=== PATIENT | female | born 1960 | race Caucasian/White ===

== ENCOUNTER 2025-01-13 01:40 | Emergency (ER) | payer OTHER, SELFPAY ==
[2025-01-13 01:41] VITALS: PULSE 98; RESP 18; TEMP 36.9; O2SAT 98; BMI 38.5
--- NOTE | 2025-01-13 02:05 | EKG12_ITS ---
Test Reason : CP Blood Pressure : */* mmHG Vent. Rate : 88 BPM Atrial Rate : 88 BPM P-R Int : 156 ms QRS Dur : 66 ms QT Int : 358 ms P-R-T Axes : 56 8 34 degrees QTcB Int : 433 ms Normal sinus rhythm with sinus arrhythmia Normal ECG Confirmed by NEHEMIAH AGUIRRE MD ([id number]), photo editor MINGO DE LA CRUZ ([id number]) on 01/13/2025 8:17:39 AM Referred By: MARIA INES Confirmed By: NEHEMIAH AGUIRRE MD
[2025-01-13] MEDS: Lidocaine 2% Viscous15 ML UDC 15 ML PO (02:13)
[2025-01-13 02:20] LABS: Hematocrit 43.9 % (37-47); Hemoglobin 15.4 g/dL (12.0-15.0); Immature Granulocytes Count 0.040 X10^3/uL (0.0-0.0); Mean Corp Hgb Conc 35.1 g/dL (32-36); Mean Corpuscular Volume 89.8 fL (81-99); Mean Platelet Vol. 10.2 fl (6.2-12.0); NRBC Flagged by Analyzer 0 % (0-5); Platelet Count 273 K/mm3 (150-450); RBC Distribution Width CV 12.0 % (11.6-14.6); RBC Distribution Width SD 39.5 fl (35.1-43.9); Red Blood Count 4.89 M/mm3 (4.2-5.4); White Blood Count 10.2 K/mm3 (4.4-11.0)
--- NOTE | 2025-01-13 02:20 | RAD_ITS ---
PROCEDURE: CHEST PA AND LATERAL 01/13/2025 REASON FOR EXAM: CHEST PAIN TECHNIQUE: CHEST PA AND LATERAL COMPARISON: None FINDINGS: Poor inspiratory effort. Mild elevated right hemidiaphragm is noted. Right basilar atelectasis is noted. Faint left lower lung zone infiltrates are noted. No effusion. No pneumothorax. Normal cardiac size. Aortic calcifications are seen. No acute rib abnormalities RAD/Chest PA and Lateral IMPRESSION: Poor inspiratory effort. Faint left lower lung zone infiltrates likely infectious. Please correlate cli nically and follow-up as clinically warranted Reading Location: [place] [id number]
[2025-01-13 02:40] VITALS: BP 152/79; PULSE 68; RESP 18; O2SAT 98
[2025-01-13 03:02] LABS: Lipase 50 U/L (13-75); Magnesium 2.2 mg/dL (1.5-2.2)
[2025-01-13 03:03] LABS: Anion Gap 11 (5-15); BUN 21 mg/dL (4-19); BUN/Creat Ratio 29.1 RATIO (10-20); Calcium,Total 9.0 mg/dL (7.6-11.0); Carbon Dioxide 25.4 mmol/L (21.0-32.0); Chloride 103 mmol/L (98-108); Estimated Creatinine Clearance 96.15 ml/min (50-250); Glucose 105 mg/dL (70-99); Potassium 3.4 mmol/L (3.3-5.1)
[2025-01-13 03:33] LABS: Troponin T High Sensitivity 11 ng/L (<=14)
[2025-01-13 04:00] VITALS: BP 145/85; PULSE 65; RESP 16; O2SAT 99
--- NOTE | 2025-01-13 04:18 | EDS_ITS ---
HPI History of Present Illness Chief Complaint: Chest Pain Informant: patient Narrative Narrative: Patient is a 64-year-old female with past medical history of hypertension and GERD. She states roughly a week ago she finished a Z-Brian as there was concern she had pneumonia from the urgent care. She states that after taking the antibiotic her cough improved and she was feeling much better. However today she noticed a vague intermittent midsternal chest discomfort/pressure. She also states she had nausea and overall sensation of increased fatigue. She reports she was able to go to sleep but kept waking up and would notice the symptoms when she was awake. Therefore she has concern this could be potential cardiac in nature and presents to the hospital for evaluation [facility] Home Medications ?Medication ?Instructions ?Recorded ?Last Taken ?Type lansoprazole 30 mg capsule,delayed 30 mg PO DAILY 12/0712/17/13 09:00 History release (Prevacid) doxycycline monohydrate 100 mg 100 mg PO BID 7 days #1 4 CAPSULES 01/13/25 Unknown Rx capsule lisinopril 1 tab PO DAILY 01/13/25 Unkn own History Allergy/AdvReac Type Severity Reaction Status Date / Time Sulfa (Sulfonamide Allergy Rash Verified 03/08/14 11:08 Antibiotics) Surgical History (Updated 01/13/25 @ 01:43 by Masha Marquez) Hx of Achilles tendon repair Hx of section Hx of hysterectomy Social History Smoking Status: Never smoker ROS ROS ED Constitutional Constitutional ED: Reports other Details: Positive fatigue ; Denies chills or fever(s) Eyes Eyes: Denies change in vision ENT ENT ED: Denies rhinorrhea or sore throat Cardiovascular Cardiovascular: Reports chest pain; Denies palpitations or racing heartbeat Respiratory/Chest Respiratory/Chest: Reports cough; Denies dyspnea Gastrointestinal Gastrointestinal: Reports nausea; Denies abdominal pain, diarrhea or vomiting Genitourinary Genitourinary ED: Denies dysuria Musculoskeletal Musculoskeletal: Denies back pain or myalgias Integumentary Denies rash Neurologic Neurologic: Denies headache(s) Hematologic/Lymphatic Hematologic/Lymphatic: Denies easy bleeding or easy bruising EXAM Physical Exam Const Vital Signs: 01/13/25 01:41 01/13/25 01:42 01/13/25 02:40 Temperature 98.5 F Temperature Source Oral Pulse Rate 98 68 Respiratory Rate 18 18 Respiratory Effort Normal Non-Labored Respiratory Pattern Normal Blood Pressure 152/79 H Blood Pressure Mean 103 Pulse Ox 98 98 Oxygen Delivery Method Room Air Room Air 01/13/25 04:00 Temperature Temperature Source Pulse Rate 65 Respiratory Rate 16 Respiratory Effort Respiratory Pattern Blood Pressure 145/85 H Blood Pressure Mean 105 Pulse Ox 99 Oxygen Delivery Method Room Air Positive well nourished and well developed General Appearance ED: well developed; Negative for pallor HEENT HEENT Narrative: Normocephalic atraumatic Eyes PERRL and EOMs intact bilaterally General Eye ED: Negative for scleral icterus Neck supple and no JVD Neck Narrative: No nuchal rigidity or meningeal signs Chest Wall palpation of chest normal Chest Narrative: No bony deformity or subcutaneous emphysema noted Resp normal respiratory effort Resp Narrative: There is faint rhonchi in the bilateral lower lobes greatest on the left without findings of respiratory distress Cardio regular rate and regular rhythm Rate: other Other Details: Heart is regular rate and rhythm without murmurs rubs or gallop Radial and carotid pulses are equal and symmetric GI normal to inspection, nondistended, normoactive bowel sounds, non-tender, non- distended and no masses GI Narrative: Soft nontender nondistended with normal active bowel sounds. No voluntary guarding no rigidity or pulsatile mass. Auscultation: normoactive bowel sounds Palpation: soft Extremity normal to inspection Extremity Narrative: Negative Homans' sign bilaterally Neuro oriented x3, CN's II-XII intact bilaterally and no sensory deficits noted Sensorium / Orientation: alert Motor Exam: strength 5/5 throughout Psych mental status grossly normal Skin no rashes or lesions noted and no wounds General Skin Exam: Negative for jaundice or pallor MDM MDM MDM Narrative Medical decision making narrative: Patient arrived to ER hypertensive but otherwise with stable vitals. She reported vague chest discomfort with fatigue and nausea. Symptoms could be related to a viral upper respiratory tract infection or viral gastro infection such as norovirus or rotavirus. There is concern that this could be due to secondary pneumonia or acute coronary syndrome. Therefore a basic workup was obtained. Lipase is normal going against pancreatitis. H&H is stable going against acute blood loss anemia and there is no signs of acute kidney injury or clinically significant electrolyte abnormality. EKG was sinus rhythm without ischemic or STEMI findings and there was no cardiac dysrhythmia noted. Initial troponin was 11 and delta remained flat going against ACS. X-ray did show changes concerning for potential pneumonia. The patient has already completed a Z-Brian and is not hypoxic or in respiratory distress she is not febrile or showing leukocytosis or left shift. Therefore this is most likely infection that has not completely been reabsorbed by the body. However because of the x- ray finding and her symptoms I do feel the safest option is to place her on doxycycline to cover for retained infection. But as there is no signs of sepsis or need for supplemental oxygen and her cardiac workup is negative there is no need for further intervention or admission and she is otherwise safe for discha rge. History & Record Review Discussion w/independent historian: Patient Lab Data Attestation: I reviewed the patient's lab results. Labs: Laboratory Results - last 24 hr 01/13/25 01/13/25 01/13/25 01:42 02:04 03:45 WBC 10.2 RBC 4.89 Hgb 15.4 H Hct 43.9 MCV 89.8 MCH 31.5 MCHC 35.1 RDW Std Deviation 39.5 RDW Coeff of Rema 12.0 Plt Count 273 MPV 10.2 Immature Gran % (Auto) 0.400 Neut % (Auto) 39.8 L Lymph % (Auto) 44.7 H Pender % (Auto) 8.8 Eos % (Auto) 5.2 H Baso % (Auto) 1.1 H Absolute Neuts (auto) 4.0 Absolute Lymphs (auto) 4.55 H Nucleated RBC % 0 Sodium 139 Potassium 3.4 Chloride 103 Carbon Dioxide 25.4 Anion Gap 11 BUN 21 H Creatinine 0.72 Estim Creat Clear Calc 96.15 Est GFR (MDRD) Non-Af 94 BUN/Creatinine Ratio 29.1 H Glucose 105 H Calcium 9.0 Magnesium 2.2 Troponin T High Sens 11 Troponin T Hi Sens 2 Hr 10 Lipase 50 Radiography Diagnostic Testing: Clinical Impression(s) from Imaging Studies Chest X-Ray 01/13/25 02:20 IMPRESSION: Poor inspiratory effort. Faint left lower lung zone infiltrates likely infectious. Please correlate clinically and follow-up as clinically warranted Reading Location: [place] [id number] Chest x-ray as interpreted by the emergency medicine physician reveals haziness within the bilateral lower lobes concerning for potential pneumonia Discharge Plan Triage Chief Complaint: Chest Pain ED Provider: Peter Bryant Dx/Rx/DC Orders Clinical Impression: Nonspecific chest pain, Hypertension, GERD (gastroesophageal reflux disease) Instructions: ED Chest Pain, Uncertain Cause Prescriptions: New doxycycline monohydrate 100 mg capsule 100 mg PO BID 7 Days Qty: 14 0RF No Action lansoprazole [Prevacid] 30 MG capsule 30 mg PO DAILY Patient Comments: ACID REFLUX lisinopril 1 tab PO DAILY Primary Care Provider: Chi Millan Referrals: Chi Millan MD [Primary Care Provider] - Activity Restrictions/Additional Instructions: Your workup today showed no sign of active heart damage. The radiologist did question a potential pneumonia. This is most likely a residual finding based on your symptoms and the fact that you completed a Z-Brian roughly a week ago. If you develop worsening cough or fever then you may take the doxycycline that was prescribed from the ER at this visit. Please continue your home medications as directed by your doctor and return if you have any further concerns Print Language: Tajik Disposition Disposition: Home, Self Care
[2025-01-13 04:30] LABS: Troponin T High Sens 2 HR 10 ng/L (<=14)
[2025-01-13 04:44] VITALS: BP 145/73; PULSE 63; RESP 18; TEMP 36.9; O2SAT 98
== END 2025-01-13 04:50 | disposition home or self-care (01) ==
PROVIDERS: Emergency Provider Emergency Medicine; PCP Family Medicine; Visit Provider Emergency Medicine
DX: R07.9 Chest pain, unspecified (principal); K21.9 Gastro-esophageal reflux disease without esophagitis; I10 Essential (primary) hypertension; Z79.899 Other long term (current) drug therapy
CPT/HCPCS: 71046; 80048; 83690; 83735; 84484; 85025; 93005; 96374; 96376; 99283; A4216; J2405

== ENCOUNTER 2025-04-03 16:48 | Emergency (ER) | payer OTHER, BC, SELFPAY ==
--- OUTSIDE RECORDS SUMMARY | 2025-02-27 15:12 | XMS RPT_ITS ---
Author Name Auto Generated Organization OHIP Care Team Providers Care Assistant Professor Of Criminal Justice Name Role Phone CHI ARIAS A Primary Care Unavailable GABBIE AZUL Attending Unava ilable HUGO, CHI A Primary Care Unavailable GABBIE AZUL Attending Unava ilable GABBIE AZUL Attending Unava ilable HUGO, CHI A Primary Care Unavailable OSMIN NGUYỄN Attending Unavailable HUGO, CHI A Primary Care Unavailable HUGO, CHI A Referring Unavailable GABBIE AZUL Referring Unava ilable HUGO, CHI A Primary Care Unavailable FAMILIA LÓPEZ Referring Unavailable HUGO, CHI A Primary Care Unavailable FAMILIA LÓPEZ Attending Unavailable HUGO, CHI A Primary Care Unavailable OSMIN NGUYỄN Referring Unavailable HUGO, CHI A Primary Care Unavailable DAVID SANCHEZ Attending Unavailable HUGO, CHI A Primary Care Unavailable HUGO, CHI A Referring Unavailable DAVID SANCHEZ Attending Unavailable OSMIN NGUYỄN Referring Unavailable HUGO, CHI A Primary Care Unavailable DAVID SANCHEZ Attending Unavailable HUGO, CHI A Referring Unavailable HUGO, CHI A Primary Care Unavailable HUGO, CHI A Primary Care Unavailable SARITHA RODRIGUEZ Referring Unavail able HUGO, CHI A Primary Care Unavailable SARITHA RODRIGUEZ Referring Unavail able GABBIE AZUL Attending Unava ilable HUGO, CHI A Primary Care Unavailable GABBIE AZUL Attending Unava ilable HUGO, CHI A Primary Care Unavailable HUGO, CHI A Primary Care Unavailable SARITHA RODRIGUEZ Referring Unavail able HUGO, CHI A Primary Care Unavailable SARITHA RODRIGUEZ Referring Unavail able HUGO, CHI A Primary Care Unavailable CHI ARIAS Referring Unavailable CHI ARIAS Primary Care Unavailable CHI ARIAS Attending Unavailable SONYA BARON Attending Unavailable CHI ARIAS Primary Care Unavailable SARITHA RODRIGUEZ Referring Unavail able OSMIN NGUYỄN Referring Unavailable CHI ARIAS Primary Care Unavailable CHI ARIAS Primary Care Unavailable SARITHA RODRIGUEZ Attending Unavail able PROBLEMS DATE TYPE CONDITION / CODE ATTENDING STATUS [facility] 08/19/2024 Active Trochanteric bur sitis of left hip / M70.62(ICD-10) [facility] 02/16/2025 Active Pain of left hip / M25.552(ICD-10) [facility] 02/16/2025 Active Primary osteoart hritis of left hip / M16.12(ICD-10) [facility] 02/16/2025 Active Tendinopathy of gluteus medius / M67.959(ICD-10) [facility] 12/29/2024 Active Community acquir ed pneumonia, unspecified laterality / J18.9(ICD-10) NA Active [facility] 12/29/2024 Active Bacterial conjun ctivitis / H10.9(ICD-10) FAMILIA LÓPEZ Active [facility] 10/27/2024 Active Encounter for immunization / Z23(ICD-10) NA Active [facility] 07/30/2024 Active Encounter for sc reening for diabetes mellitus / Z13.1(ICD-10) NA Active [facility] 07/30/2024 Active Well adult exam / Z00.00(ICD-10) NA Active [facility] 07/19/2022 Active Medication manag ement / Z79.899(ICD-10) NA Active [facility] 06/22/2021 Active GERD without eso phagitis / K21.9(ICD-10) NA Active [facility] 06/22/2021 Active Hyperlipidemia, mixed / E78.2(ICD-10) NA Active [facility] 06/22/2021 Active Essential hypert ension, benign / I10(ICD-10) NA Active [facility] 10/14/2024 Active Category 3 mammo graphy result with short follow-up interval suggested for probably benign finding / R92.8(ICD-10) NA Active [facility] 06/22/2021 Active Obesity, Class I I, BMI 35-39.9 / E66.812(ICD-10) CHI ARIAS Active [facility] 06/22/2021 Active Moderate asthma without complication, unspecified whether persistent / J45.909(ICD-10) CHI ARIAS Active [facility] 07/30/2024 Active Screening for de pression / Z13.31(ICD-10) CHI ARIAS Active [facility] 07/30/2024 Active Encounter for sc reening examination for other mental health and behavioral disorders / Z13.39(ICD-10) CHI ARIAS Active [facility] 07/30/2024 Active Need for vaccina tion / Z23(ICD-10) CHI ARIAS Active [facility] 07/23/2024 Active Cervical high ri sk human papillomavirus (HPV) DNA test positive / R87.810(ICD-10) SONYA BARON Active [facility] 01/28/2024 Active Left hip pain / M25.552(ICD-10) OSMIN NGUYỄN Active [facility] 04/15/2024 Active Abnormal mammogr am / R92.8(ICD-10) NA Active [facility] 01/28/2024 Active Radicular pain i n left arm / M79.2(ICD-10) DAVID SANCHEZ Active [facility] 01/28/2024 Active Acute pain of le ft shoulder / M25.512(ICD-10) DAVID SANCHEZ Active [facility] 01/28/2024 Active Neck pain / M54.2(ICD-10) DAVID SANCHEZ Active [facility] PROCEDURES No Procedure Records Found RESULTS CNPN Observed: 04/03/2025 12:00 AM Status: COMPLETED Source: [facility] JONELGERI A ([id number]) 1960 F Date Time Provider Department 04/03/25 [facility] During your visit today, we recorded the following information about you: Ana Maria Mckeon LPN 04/03/2025 3:21 PM Signed Patient calling she had flank pain last weekend and the the pain went to lower pubic pain so she thought she passed the kidney stone. Today patient said she is having flank pain again, she is at work and having hard time sitting. Aware no appt available with providers to get pain medication rx. Advised would need to go to ER, and that the urgent care could not prescribe pain medication for her. Chi Arias MD 04/03/2025 3:55 PM Signed Agree with info provided Allergies As of Date: 04/03/2025 Noted Allergy Reaction SULFA (SULFONAMIDE ANTIBIOTICS) 04/11/2005 2 - Rash Date Reviewed: 02/27/2025 Reviewed by: Shira Frye MA - Fully Assessed Reason for Visit: Flank Pain [356] Prescriptions as of 04/03/2025 - albuterol HFA (PROVENTIL HFA, VENTOLIN HFA) 90 mcg/actuation inhaler Inhale 2 puffs as instructed every 4 hours as needed for wheezing/shortness of breath. - polymyxin B-trimethoprim (POLYTRIM) 10,000 unit- 1 mg/mL ophthalmic solution Use 1 drop in both eyes four times daily. - lansoprazole (PREVACID) 30 mg capsule Take 1 capsule by mouth once daily. - lisinopril-hydroCHLOROthiazide (ZESTORETIC) 10-12.5 mg per tablet Take 1 tablet by mouth every morning. - metroNIDAZOLE (METROGEL) 0.75 % Topical Gel Apply to affected area two times a day. - Multivitamin capsule Take 1 capsule by mouth once daily. Problem List As Of Date 04/03/2025 Noted Resolved Essential hypertension, benign [I10] 06/09/2009 Obesity, Class III, BMI 40-49.9 (morbid obesity*06/09/2009 07/15/2018 Hyperlipidemia, mixed [E78.2] 06/10/2009 Moderate asthma without complication [J45.909] 12/02/2011 Vaginitis [N76.0] 09/10/2012 08/11/2019 Rosacea [L71.9] 12/13/2012 Impaired fasting glucose [R73.01] 01/24/2013 07/15/2018 Lichen sclerosus [L90.0] 02/11/2013 07/25/2023 Lactose intolerance [E73.9] 07/07/2016 Obesity, Class II, BMI 35-39.9 [E66.812] 08/11/2019 GERD without esophagitis [K21.9] 06/22/2021 Well adult exam [Z00.00] 06/22/2021 History of COVID-19 [Z86.16] 07/19/2022 Medication management [Z79.899] 07/19/2022 Neck pain [M54.2] 01/28/2024 Acute pain of left shoulder [M25.512] 01/28/2024 Radicular pain in left arm [M79.2] 01/28/2024 Left hip pain [M25.552] 01/28/2024 Encounter for screening for diabetes mellitus [*07/30/2024 Trochanteric bursitis of left hip [M70.62] 08/19/2024 Encounter Status:Closed by CHI ARIAS on 04/03/25 PROGRESS Observed: 02/27/2025 3:52 PM Status: COMPLETED Source: [facility] HNO ID: [id number] Author: GABBIE AZUL, DO Service: ? Author Type: Physician Type: Progress Notes Filed: 02/27/2025 16:09 Note Text: CHIEF COMPLAINT: Patient presents with: Left Hip - Established Patient, Follow Up, Pain: Still experiencing pain PAIN EVALUATION 02/24/2025 1041 Pain Level: 3 Pain Location: Hip-Left Description: Aching;Crushing;Dull;Sharp Duration Amount of Time: 18 Duration Units: Months Frequency: Intermittent Intervention/Comfort measure: Medication;Reposition;Relaxation;Cold;Massage;Pillow support;Positioning;Support surface SUBJECTIVE: Geri De Santiago is a 64 year old female here for consideration of USG IA hip CSI, left. Last Hgba1c: Hemoglobin A1C (%) Date Value 10/14/2024 5.4 07/19/2023 5.2 07/20/2021 4.9 07/12/2018 5.1 Past medical, surgical, social and family history were reviewed. Allergies and current medications reviewed. REVIEW OF SYSTEMS: GENERAL: no recent illness, unexplained weight loss or weight gain NEUROLOGIC: no numbness, tingling, or weakness except as mentioned in HPI, no known neuro problems or deficits SKIN: No rash or new skin changes and no chronic skin problems MSK: as mentioned in HPI PHYSICAL EXAMINATION: GENERAL APPEARANCE: Well appearing, in no acute distress, alert and oriented x3. L hip - cool to the touch without significant effusion. Skin is intact. Patient remains distally neurovascularly intact at baseline. IMAGING: No imaging was performed today. Last MRI Hip/Pelvis - Impression Only MRI HIP WO IVCON LEFT Exam End: 02/18/2025 8:05 AM (Final result) Impression: IMPRESSION: Severe osteoarthritis of the left hip Front Office Secretary: ALYSSA Transcribe Date/Time: Feb 18 2025 9:27A... CLINICAL IMPRESSION: (M16.12) Primary osteoarthritis of left hip (primary encounter diagnosis) (M25.552) Pain of left hip PLAN: - Risks, benefits, and indications for corticosteroid injections discussed. Injection performed as detailed in the procedure note below. Large Joint Arthro/Inj: L hip joint 02/27/2025 4:08 PM The procedure site was prepped in the usual sterile fashion. Site: L hip joint Details:Musculoskeletal ultrasound was utilized to successfully localize placement of the injection needle at the appropriate site. Ultrasound images demonstrating local vasculature and demonstrating injection of solution were saved. Medications: 6 mg betamethasone acetate-betamethasone sodium phosphate 6 mg/mL Anesthetics: 3 mL lidocaine (PF) 10 mg/mL (1 %) Outcome: Tolerated well, no immediate complications Post-injection instructions were reviewed with the patient and the patient voiced understanding of these instructions. Informed Consent Consent Obtained: Verbal Whitney Protocol A moment to CARE was completed. SIGN IN Personnel directly involved with the procedure wore the appropriate PPE. Patient/Surrogate Stated/Verified: Patient name, Date of , Relevant allergies and Intended procedure TIME OUT Relevant labs, photos, and/or imaging studies have been reviewed. Correct side/site marked and visible. Medications required for procedure verified. No fire risk assessment and interventions applicable. No implant(s) inserted. SIGN OUT No specimen collected. All instruments, equipment, possible retained foreign bodies accounted for. The post-procedure POC has been communicated to the patient or surrogate. No post-procedure POC communication to the patient's multidisciplinary team (including the bedside nurse for hospitalized patients) applicable. Follow-up: 3 months or PRN Written instructions (see patient instructions) and verbal health teaching given to patient, patient verbalizes understanding and agrees with treatment plan. Electronically Signed: Gabbie Azul DO Sports Medicine Physician Medical Decision Making CNOV Observed: 02/27/2025 3:20 PM Status: COMPLETED Source: [facility] Office Visit ([facility]) GERI DE SANTIAGO ([id number]) 1960 F Date Time Provider Department 02/27/25 3:20 PM GABBIE AZUL [facility] During your visit today, we recorded the following information about you: Gabbie Azul DO 02/27/2025 3:49 PM Signed Post injection Instructions: You received a steroid injection today. Please keep any physical therapy appointments and schedule a follow-up appointment as recommended. Benefits: Injections help with PAIN and allow you to better participate in daily activities and exercise/therapy. Injections do NOT cause healing of arthritis or injuries. As pain is better controlled, this will reduce the need to use anti-inflammatories by mouth and/or if you are not able to take an anti-inflammatory due to other reasons (you have been advised to avoid or they are contra-indicated). Activity recommendations: For the first 24 hours after the injection, keep the area clean and dry. It is okay to shower but no soaking in a tub or swimming. Schedule the injection when you have 1-2 days to rest afterwards. Ideally, no strenuous or vigorous activities (such as running or heavy lifting) for 3 days after the injection. Therefore, plan ahead to have any exercise or errands completed before the injection so you can relax afterwards. After the first week, you can gradually resume normal activities. If you do experience a significant decrease in pain, be careful not to do too much too soon. The sotelo is gradual resumption of activities. What to expect: The injection contains lidocaine (which numbs the joint) and a steroid (which decreases inflammation). You may have pain relief within hours (sometimes immediate) due to the lidocaine. The steroid can take a few days, up to a few weeks, to reach the full effect, so please be patient! The numbing medicine you received will wear off in 4-6 hours. It is also possible to have a slight increase in symptoms over the first few days. In order to prevent that, please take some anti-inflammatory (prescription strength, or Ibuprofen, or naprosyn) for the next three to five days. You may also need to ice the injected area at LEAST three times a day as instructed below. How long will an injection last? The length of response to an injection is variable. Patients have experienced relief anywhere from a few weeks to a few years. The injection will decrease the inflammation and the pain will return if/when the inflammation returns. Side effects: - There is a risk of bleeding and infection with any injection (including vaccinations). Precautions are taken to reduce this risk greatly. - If you have diabetes, the steroid component may raise your blood sugars significantly. Your doctor may postpone or recommend other therapies based on your blood sugar control. - Allergic reactions to the lidocaine or steroid can occur. If you have a known allergy to lidocaine or any steroid, please notify your doctor. PLEASE CALL YOUR DOCTOR OR PROCEED TO EMERGENCY ROOM IF: - You develop fevers/chills, redness or warmth at area of injection - You develop rash, difficulty breathing - You have significant worsening of your pain that is not controlled with the above suggestions ICING INSTRUCTIONS For an ice bag, apply for 15-20 minutes at least three times a day, more if needed. Ice in a Ziplog/plastic bag or even a bag of frozen peas/corn will work (and is reusable). You can also use Sari dish liquid frozen in a ziploc bag. Use a large bottle, dump it in a gallon ziploc bag, zip that and place it inside another ziploc bag. Place in freezer and let it harden to a Play-ana maria like consistency. Mold it around the part to be iced and use an poonam wrap or towel to keep in place. Refreeze and use when needed. For ice massage, fill an empty paper or styrofoam cup nearly full with water, place them in the freezer and let them freeze completely. Tear the top off of the cup leaving the bottom part of the cup intact so you can hold onto it. Rub the ice over the affected area for about [address] to do this is in the shower or the bath (with affected area out of the water) for the contrast of hot water, but it can be done outside of the shower. MEDICATION INSTRUCTIONS Aleve (Naproxen sodium), 1-2 pills, up to twice a day, with food, for 5-10 days, then as needed thereafter. OR Ibuprofen (Motrin), 3-4 pills, up to three times a day, with food, for 5-10 days, then as needed thereafter. Do not take these medications if you have been instructed not to in the past or if you are taking another anti-inflammatory (such as Celebrex, Naprosyn, Relafen, Voltaren, Mobic, Anaprox, etc). Do not take if you have a history of bleeding ulcers in your stomach. If this should start to upset your stomach, stop taking it. Should you have any questions, you may want to ask your pharmacist or give our office a call. AND/OR Tylenol (acetaminophen), three 325mg pills, or two 500mg pills, up to four times a day, for 5-10 days, then as needed thereafter. Do not take this if you have liver problems or have been advised to not take Tylenol in the past. Be careful when combining with other pain relievers as several pain relievers have acetaminophen in them. Should you have any questions, you may want to ask your pharmacist or give our office a call. Gabbie Azul DO 02/27/2025 4:09 PM Signed CHIEF COMPLAINT: Patient presents with: Left Hip - Established Patient, Follow Up, Pain: Still experiencing pain PAIN EVALUATION 02/24/2025 1041 Pain Level: 3 Pain Location: Hip-Left Description: Aching;Crushing;Dull;Sharp Duration Amount of Time: 18 Duration Units: Months Frequency: Intermittent Intervention/Comfort measure: Medication;Reposition;Relaxation;Cold;Massage;Pillow support;Positioning;Support surface SUBJECTIVE: Geri De Santiago is a 64 year old female here for consideration of USG IA hip CSI, left. Last Hgba1c: Hemoglobin A1C (%) Date Value 10/14/2024 5.4 07/19/2023 5.2 07/20/2021 4.9 07/12/2018 5.1 Past medical, surgical, social and family history were reviewed. Allergies and current medications reviewed. REVIEW OF SYSTEMS: GENERAL: no recent illness, unexplained weight loss or weight gain NEUROLOGIC: no numbness, tingling, or weakness except as mentioned in HPI, no known neuro problems or deficits SKIN: No rash or new skin changes and no chronic skin problems MSK: as mentioned in HPI PHYSICAL EXAMINATION: GENERAL APPEARANCE: Well appearing, in no acute distress, alert and oriented x3. L hip - cool to the touch without significant effusion. Skin is intact. Patient remains distally neurovascularly intact at baseline. IMAGING: No imaging was performed today. Last MRI Hip/Pelvis - Impression Only MRI HIP WO IVCON LEFT Exam End: 02/18/2025 8:05 AM (Final result) Impression: IMPRESSION: Severe osteoarthritis of the left hip Front Office Secretary: ALYSSA Transcribe Date/Time: Feb 18 2025 9:27A... CLINICAL IMPRESSION: (M16.12) Primary osteoarthritis of left hip (primary encounter diagnosis) (M25.552) Pain of left hip PLAN: - Risks, benefits, and indications for corticosteroid injections discussed. Injection performed as detailed in the procedure note below. Large Joint Arthro/Inj: L hip joint 02/27/2025 4:08 PM The procedure site was prepped in the usual sterile fashion. Site: L hip joint Details:Musculoskeletal ultrasound was utilized to successfully localize placement of the injection needle at the appropriate site. Ultrasound images demonstrating local vasculature and demonstrating injection of solution were saved. Medications: 6 mg betamethasone acetate-betamethasone sodium phosphate 6 mg/mL Anesthetics: 3 mL lidocaine (PF) 10 mg/mL (1 %) Outcome: Tolerated well, no immediate complications Post-injection instructions were reviewed with the patient and the patient voiced understanding of these instructions. Informed Consent Consent Obtained: Verbal Whitney Protocol A moment to CARE was completed. SIGN IN Personnel directly involved with the procedure wore the appropriate PPE. Patient/Surrogate Stated/Verified: Patient name, Date of , Relevant allergies and Intended procedure TIME OUT Relevant labs, photos, and/or imaging studies have been reviewed. Correct side/site marked and visible. Medications required for procedure verified. No fire risk assessment and interventions applicable. No implant(s) inserted. SIGN OUT No specimen collected. All instruments, equipment, possible retained foreign bodies accounted for. The post-procedure POC has been communicated to the patient or surrogate. No post-procedure POC communication to the patient's multidisciplinary team (including the bedside nurse for hospitalized patients) applicable. Follow-up: 3 months or PRN Written instructions (see patient instructions) and verbal health teaching given to patient, patient verbalizes understanding and agrees with treatment plan. Electronically Signed: Gabbie Azul DO Sports Medicine Physician Medical Decision Making Allergies As of Date: 02/27/2025 Noted Allergy Reaction SULFA (SULFONAMIDE ANTIBIOTICS) 04/11/2005 2 - Rash Date Reviewed: 02/27/2025 Reviewed by: Shira Frye MA - Fully Assessed Reason for Visit: Established Patient [175] Cmt: Still experiencing pain Follow Up [171] Cmt: Still experiencing pain Pain [78] Cmt: Still experiencing pain Primary Visit Diagnosis:Primary osteoarthritis of left hip [M16.12] Other Visit Diagnosis:Pain of left hip [M25.552] Order(s):US HIP-INJECTION LT (POC) LAKHWINDER USE ONLY [[id number]] Order #: [id number]. #:[id number]: 1 Large Joint Arthro/Inj: L hip joint [[id number]] Order #: [id number] [] betamethasone acetate-betamethasone sodium phosphate 6 mg injection (CELESTONE)Disp: Rfl: [] lidocaine (PF) 10 mg/mL (1 %) 3 mL injection (XYLOCAINE)Disp: Rfl: Prescriptions as of 02/27/2025 - albuterol HFA (PROVENTIL HFA, VENTOLIN HFA) 90 mcg/actuation inhaler Inhale 2 puffs as instructed every 4 hours as needed for wheezing/shortness of breath. - polymyxin B-trimethoprim (POLYTRIM) 10,000 unit- 1 mg/mL ophthalmic solution Use 1 drop in both eyes four times daily. - lansoprazole (PREVACID) 30 mg capsule Take 1 capsule by mouth once daily. - lisinopril-hydroCHLOROthiazide (ZESTORETIC) 10-12.5 mg per tablet Take 1 tablet by mouth every morning. - metroNIDAZOLE (METROGEL) 0.75 % Topical Gel Apply to affected area two times a day. - Multivitamin capsule Take 1 capsule by mouth once daily. Problem List As Of Date 02/27/2025 Noted Resolved Essential hypertension, benign [I10] 06/09/2009 Obesity, Class III, BMI 40-49.9 (morbid obesity*06/09/2009 07/15/2018 Hyperlipidemia, mixed [E78.2] 06/10/2009 Moderate asthma without complication [J45.909] 12/02/2011 Vaginitis [N76.0] 09/10/2012 08/11/2019 Rosacea [L71.9] 12/13/2012 Impaired fasting glucose [R73.01] 01/24/2013 07/15/2018 Lichen sclerosus [L90.0] 02/11/2013 07/25/2023 Lactose intolerance [E73.9] 07/07/2016 Obesity, Class II, BMI 35-39.9 [E66.812] 08/11/2019 GERD without esophagitis [K21.9] 06/22/2021 Well adult exam [Z00.00] 06/22/2021 History of COVID-19 [Z86.16] 07/19/2022 Medication management [Z79.899] 07/19/2022 Neck pain [M54.2] 01/28/2024 Acute pain of left shoulder [M25.512] 01/28/2024 Radicular pain in left arm [M79.2] 01/28/2024 Left hip pain [M25.552] 01/28/2024 Encounter for screening for diabetes mellitus [*07/30/2024 Trochanteric bursitis of left hip [M70.62] 08/19/2024 Other instructions from your clinician: Post injection Instructions: You received a steroid injection today. Please keep any physical therapy appointments and schedule a follow-up appointment as recommended. Benefits: Injections help with PAIN and allow you to better participate in daily activities and exercise/therapy. Injections do NOT cause healing of arthritis or injuries. As pain is better controlled, this will reduce the need to use anti-inflammatories by mouth and/or if you are not able to take an anti-inflammatory due to other reasons (you have been advised to avoid or they are contra-indicated). Activity recommendations: For the first 24 hours after the injection, keep the area clean and dry. It is okay to shower but no soaking in a tub or swimming. Schedule the injection when you have 1-2 days to rest afterwards. Ideally, no strenuous or vigorous activities (such as running or heavy lifting) for 3 days after the injection. Therefore, plan ahead to have any exercise or errands completed before the injection so you can relax afterwards. After the first week, you can gradually resume normal activities. If you do experience a significant decrease in pain, be careful not to do too much too soon. The sotelo is gradual resumption of activities. What to expect: The injection contains lidocaine (which numbs the joint) and a steroid (which decreases inflammation). You may have pain relief within hours (sometimes immediate) due to the lidocaine. The steroid can take a few days, up to a few weeks, to reach the full effect, so please be patient! The numbing medicine you received will wear off in 4-6 hours. It is also possible to have a slight increase in symptoms over the first few days. In order to prevent that, please take some anti-inflammatory (prescription strength, or Ibuprofen, or naprosyn) for the next three to five days. You may also need to ice the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 crusting around eyes; had contact with grandchildren who had conjunctivitis. - Has received a pneumonia vaccine. - Allergic to sulfa drugs. - Taking Estradiol, Metrogel, and a multivitamin. Review of Systems Constitutional: Negative for chills, fatigue and fever. HENT: Negative for congestion, ear pain, postnasal drip, sinus pressure, sore throat and trouble swallowing. Eyes: Positive for discharge (watery). Negative for photophobia, pain and redness. Respiratory: Positive for cough, chest tightness and wheezing. Negative for shortness of breath. Cardiovascular: Negative for chest pain, palpitations and leg swelling. Gastrointestinal: Negative for diarrhea, nausea and vomiting. Genitourinary: Negative for dysuria, frequency and urgency. Musculoskeletal: Negative for myalgias. Constitutional: (+) fatigue Cardiovascular: (+) chest tightness, (-) chest pain Respiratory: (+) cough, (-) shortness of breath Gastrointestinal: (-) nausea, (-) vomiting, (-) diarrhea Objective BP 122/74 Pulse 84 Temp 36.9 ?C (98.4 ?F) Resp 16 Wt 101.1 kg (222 lb 14.2 oz) LMP 12/17/2007 SpO2 97% BMI 38.26 kg/m? Physical Exam Vitals and nursing note reviewed. Constitutional: General: She is not in acute distress. Appearance: Normal appearance. She is not ill-appearing or toxic-appearing. HENT: Head: Normocephalic and atraumatic. Right Ear: Ear canal and external ear normal. Left Ear: Ear canal and external ear normal. Ears: Comments: TM's slightly bulging with clear fluid Nose: Congestion (mild mucosal edema) and rhinorrhea (clear fluid in nares) present. Right Turbinates: Swollen. Left Turbinates: Swollen. Right Sinus: No maxillary sinus tenderness or frontal sinus tenderness. Left Sinus: No maxillary sinus tenderness or frontal sinus tenderness. Mouth/Throat: Mouth: Mucous membranes are moist. Pharynx: Oropharynx is clear. Posterior oropharyngeal erythema (mild with clear fluid) present. No pharyngeal swelling or oropharyngeal exudate. Eyes: Extraocular Movements: Extraocular movements intact. Conjunctiva/sclera: Conjunctivae normal. Pupils: Pupils are equal, round, and reactive to light. Cardiovascular: Rate and Rhythm: Normal rate and regular rhythm. Pulses: Normal pulses. Heart sounds: Normal heart sounds. Pulmonary: Effort: Pulmonary effort is normal. Breath sounds: Wheezing (end expiratory wheezes in bilateral bases, does not clear with coughing and deep breathing) present. No rhonchi. Abdominal: General: Bowel sounds are normal. Palpations: Abdomen is soft. Musculoskeletal: Cervical back: Normal range of motion and neck supple. No tenderness. Lymphadenopathy: Cervical: No cervical adenopathy. Skin: General: Skin is warm. Capillary Refill: Capillary refill takes less than 2 seconds. Neurological: General: No focal deficit present. Mental Status: She is alert and oriented to person, place, and time. General: No acute distress. HEENT: Conjunctival crusting noted. Resp: Wheezing noted. ASSESSMENT/PLAN: 1. Community acquired pneumonia, unspecified laterality - ICD9: 486, ICD10: J18.9 (primary diagnosis) - XR CHEST 2V FRONTAL/LAT - ALBUTEROL SULFATE HFA 90 MCG/ACTUATION AEROSOL INHALER - DOXYCYCLINE HYCLATE 100 MG CAPSULE 2. Bacterial conjunctivitis - ICD9: 372.39, 041.9, ICD10: H10.9 - see medication orders - course and contagiousness issues discussed, including hand washing. - Instructed to call if high fever, development of periorbital redness or swelling, eye pain, visual changes, concerns or if symptoms persist. - POLYMYXIN B SULFATE 10,000 UNIT-TRIMETHOPRIM 1 MG/ML EYE DROPS Ambience AI generated recording and notation utilized after patient/guardian approved Patient given educational materials - see patient instructions. Discussed use, benefit, and side effects of prescribed medications. All patient questions answered. Pt voiced understanding and agrees with treatment plan. Patient advised to follow up with PCP within one week, or sooner if symptoms worsen or persist. If symptoms become severe- GO TO ED. Patient agreeable with treatment plan. Familia López APRN.[employer] PRO[employer] History and Record Review External record(s) reviewed: prior outpatient record. Findings from review of outpatient records: smoke exposure history Systemic symptoms present included: Differential Diagnoses - CAP is more likely for the following reason(s): Wheezing, history of Bronchitis in the past and length of time Disposition The patient was discharged. PROGRESS Observed: 12/29/2024 5:50 PM Status: COMPLETED Source: [facility] HNO ID: [id number] Author: FAMILIA FORTE RT(R) Service: ? Author Type: Help Desk Intern Type: Progress Notes Filed: 12/29/2024 18:02 Note Text: Radiology Service Progress Note PATIENT NAME: Geri De Santiago DATE OF SERVICE: December 29, 2024 TIME: 5:55 PM PATIENT IDENTITY VERIFICATION COMPLETED USING TWO (2) IDENTIFIERS: Name and Date of confirmed by patient verbally. FALL SCREENING: Has the patient had 2 falls in the last year or 1 fall with injury or currently using an Ambulatory Assistive Device (Walker, Cane, Wheelchair, Crutches, etc.)? No PATIENT GENDER DATA: Assigned female at . status: : No status: NO. PATIENT RELEVANT IMPLANT DATA REVIEWED: Yes PATIENT PRESENTS WITH AN IMPLANTABLE OR ATTACHED POSTAL SUPERVISOR: No RADIOLOGY DEPARTMENT: General X-ray: Exam(s) Completed: Chest X-Ray PERIPHERAL IV DATA: Not applicable SIGNED BY: RT Tiffanie(R) December 29, 2024 5:55 PM CNOV Observed: 12/29/2024 5:30 PM Status: COMPLETED Source: [facility] Office Visit ([facility]) GERI DE SANTIAGO ([id number]) 1960 F Date Time Provider Department 12/29/24 5:30 PM FAMILIA LÓPEZ [facility] During your visit today, we recorded the following information about you: Temperature Pulse Respiration Blood pressure 98.4 degrees 84/minute 16/minute 122/74 Weight 101.1 kg Familia López APRN.[facility] 12/29/2024 5:40 PM Signed GENERAL INFORMATION: Pneumonia is a lung infection caused by bacteria, viruses, or bacteria-like germs. It usually cannot be spread to other people. INSTRUCTIONS: 1. If you are given a prescription for antibiotics, take them as ordered by your doctor until they are all gone. 2. Use a cool-mist humidifier or vaporizer to increase air moisture. This will make it easier for you to breathe. Do not use hot steam. 3. Rest in until your temperature is normal (98.6 F or 37 C) and your chest pain and shortness of breath are gone. 4. Slowly restart your normal activities. You may feel weak and tired for up to six weeks. 5. Drink at least one glass of water or other liquid every hour. This will help thin sputum and make it easier to cough up. 6. If you have chest pain, applying a heating pad or warm compresses for 10 to 20 minutes several times a day to the painful area may lessen the pain. 7. Take several deep breaths and then cough frequently during the day. This will help get rid of the infection. 8. You may take medicines that you can buy without a prescription to treat pain and fever. Use cough medicine only if absolutely necessary as coughing helps clear the infection. CONTACT YOUR DOCTOR IF: 1. Your temperature is over 102 F (39 C). 2. Your chest pain, fever or chills do not get better with medicine in 2-3 days. 3. You develop nausea, vomiting or diarrhea. 4. You are coughing up large amounts of bloody sputum. 5. You have any problems that may be related to the medicine that you are taking (such as rash, itching, swelling, or stomach pain). RETURN TO THE EMERGENCY DEPARTMENT IF: 1. You have a lot of trouble breathing or you have dark or bluish fingernails, toenails, or skin. 2. You have a severe headache, neck stiffness, or feel confused. Familia López APRN.[facility] 12/29/2024 5:55 PM Signed [facility] Subjective Geri De Santiago is a 64 year old female. Patient presents with: Cough: x 3 weeks, eye redness and itching x today HPI Cough and Wheezing: - Symptoms began approximately three weeks ago. - Describes cough as uncontrollable at times, lasting up to 10 minutes. - Associated with wheezing and chest tightness during prolonged coughing episodes. - Denies dyspnea or chest pain outside of coughing episodes. - Using cough syrup and Tylenol Cold for symptom management. - No recent travel. - Denies use of nasal sprays. - Denies nausea, emesis, or diarrhea. - Denies smoking or vaping; significant secondhand smoke exposure during childhood. - Has a history of using an inhaler but has not used one in years. - Reports feeling a little more tired than normal. - Denies recent fever or myalgias. - Noted crusting around eyes; had contact with grandchildren who had conjunctivitis. - Has received a pneumonia vaccine. - Allergic to sulfa drugs. - Taking Estradiol, Metrogel, and a multivitamin. Review of Systems Constitutional: Negative for chills, fatigue and fever. HENT: Negative for congestion, ear pain, postnasal drip, sinus pressure, sore throat and trouble swallowing. Eyes: Positive for discharge (watery). Negative for photophobia, pain and redness. Respiratory: Positive for cough, chest tightness and wheezing. Negative for shortness of breath. Cardiovascular: Negative for chest pain, palpitations and leg swelling. Gastrointestinal: Negative for diarrhea, nausea and vomiting. Genitourinary: Negative for dysuria, frequency and urgency. Musculoskeletal: Negative for myalgias. Constitutional: (+) fatigue Cardiovascular: (+) chest tightness, (-) chest pain Respiratory: (+) cough, (-) shortness of breath Gastrointestinal: (-) nausea, (-) vomiting, (-) diarrhea Objective BP 122/74 Pulse 84 Temp 36.9 ?C (98.4 ?F) Resp 16 Wt 101.1 kg (222 lb 14.2 oz) LMP 12/17/2007 SpO2 97% BMI 38.26 kg/m? Physical Exam Vitals and nursing note reviewed. Constitutional: General: She is not in acute distress. Appearance: Normal appearance. She is not ill-appearing or toxic-appearing. HENT: Head: Normocephalic and atraumatic. Right Ear: Ear canal and external ear normal. Left Ear: Ear canal and external ear normal. Ears: Comments: TM's slightly bulging with clear fluid Nose: Congestion (mild mucosal edema) and rhinorrhea (clear fluid in nares) present. Right Turbinates: Swollen. Left Turbinates: Swollen. Right Sinus: No maxillary sinus tenderness or frontal sinus tenderness. Left Sinus: No maxillary sinus tenderness or frontal sinus tenderness. Mouth/Throat: Mouth: Mucous membranes are moist. Pharynx: Oropharynx is clear. Posterior oropharyngeal erythema (mild with clear fluid) present. No pharyngeal swelling or oropharyngeal exudate. Eyes: Extraocular Movements: Extraocular movements intact. Conjunctiva/sclera: Conjunctivae normal. Pupils: Pupils are equal, round, and reactive to light. Cardiovascular: Rate and Rhythm: Normal rate and regular rhythm. Pulses: Normal pulses. Heart sounds: Normal heart sounds. Pulmonary: Effort: Pulmonary effort is normal. Breath sounds: Wheezing (end expiratory wheezes in bilateral bases, does not clear with coughing and deep breathing) present. No rhonchi. Abdominal: General: Bowel sounds are normal. Palpations: Abdomen is soft. Musculoskeletal: Cervical back: Normal range of motion and neck supple. No tenderness. Lymphadenopathy: Cervical: No cervical adenopathy. Skin: General: Skin is warm. Capillary Refill: Capillary refill takes less than 2 seconds. Neurological: General: No focal deficit present. Mental Status: She is alert and oriented to person, place, and time. General: No acute distress. HEENT: Conjunctival crusting noted. Resp: Wheezing noted. ASSESSMENT/PLAN: 1. Community acquired pneumonia, unspecified laterality - ICD9: 486, ICD10: J18.9 (primary diagnosis) - XR CHEST 2V FRONTAL/LAT - ALBUTEROL SULFATE HFA 90 MCG/ACTUATION AEROSOL INHALER - DOXYCYCLINE HYCLATE 100 MG CAPSULE 2. Bacterial conjunctivitis - ICD9: 372.39, 041.9, ICD10: H10.9 - see medication orders - course and contagiousness issues discussed, including hand washing. - Instructed to call if high fever, development of periorbital redness or swelling, eye pain, visual changes, concerns or if symptoms persist. - POLYMYXIN B SULFATE 10,000 UNIT-TRIMETHOPRIM 1 MG/ML EYE DROPS Ambience AI generated recording and notation utilized after patient/guardian approved Patient given educational materials - see patient instructions. Discussed use, benefit, and side effects of prescribed medications. All patient questions answered. Pt voiced understanding and agrees with treatment plan. Patient advised to follow up with PCP within one week, or sooner if symptoms worsen or persist. If symptoms become severe- GO TO ED. Patient agreeable with treatment plan. Familia López APRN.[facility] History and Record Review External record(s) reviewed: prior outpatient record. Findings from review of outpatient records: smoke exposure history Systemic symptoms present included: Differential Diagnoses - CAP is more likely for the following reason(s): Wheezing, history of Bronchitis in the past and length of time Disposition The patient was discharged. Allergies As of Date: 12/29/2024 Noted Allergy Reaction SULFA (SULFONAMIDE ANTIBIOTICS) 04/11/2005 2 - Rash Date Reviewed: 12/29/2024 Reviewed by: Familia López APRN.[employer] PROGRAMMER - Fully Assessed Reason for Visit: Cough [28] Cmt: x 3 weeks, eye redness and itching x today Primary Visit Diagnosis:Community acquired pneumonia, unspecified laterality [J18.9] Other Visit Diagnosis:Bacterial conjunctivitis [H10.9] Order(s):XR CHEST 2V FRONTAL/LAT [[id number]] Order #: [id number] FUTURE albuterol HFA (PROVENTIL HFA, VENTOLIN HFA) 90 mcg/actuation inhalerInhale 2 puffs as instructed every 4 hours as needed for wheezing/shortness of breath.Disp: 1 eachRfl: 0 doxycycline hyclate (VIBRAMYCIN) 100 mg capsuleTake 1 capsule by mouth two times a day for 5 days.Disp: 10 capsuleRfl: 0 polymyxin B-trimethoprim (POLYTRIM) 10,000 unit- 1 mg/mL ophthalmic solutionUse 1 drop in both eyes four times daily.Disp: 10 mLRfl: 0 Prescriptions as of 12/29/2024 - albuterol HFA (PROVENTIL HFA, VENTOLIN HFA) 90 mcg/actuation inhaler Inhale 2 puffs as instructed every 4 hours as needed for wheezing/shortness of breath. - doxycycline hyclate (VIBRAMYCIN) 100 mg capsule Take 1 capsule by mouth two times a day for 5 days. - polymyxin B-trimethoprim (POLYTRIM) 10,000 unit- 1 mg/mL ophthalmic solution Use 1 drop in both eyes four times daily. - lansoprazole (PREVACID) 30 mg capsule Take 1 capsule by mouth once daily. - lisinopril-hydroCHLOROthiazide (ZESTORETIC) 10-12.5 mg per tablet Take 1 tablet by mouth every morning. - metroNIDAZOLE (METROGEL) 0.75 % Topical Gel Apply to affected area two times a day. - Multivitamin capsule Take 1 capsule by mouth once daily. Problem List As Of Date 12/29/2024 Noted Resolved Essential hypertension, benign [I10] 06/09/2009 Obesity, Class III, BMI 40-49.9 (morbid obesity*06/09/2009 07/15/2018 Hyperlipidemia, mixed [E78.2] 06/10/2009 Moderate asthma without complication [J45.909] 12/02/2011 Vaginitis [N76.0] 09/10/2012 08/11/2019 Rosacea [L71.9] 12/13/2012 Impaired fasting glucose [R73.01] 01/24/2013 07/15/2018 Lichen sclerosus [L90.0] 02/11/2013 07/25/2023 Lactose intolerance [E73.9] 07/07/2016 Obesity, Class II, BMI 35-39.9 [E66.812] 08/11/2019 GERD without esophagitis [K21.9] 06/22/2021 Well adult exam [Z00.00] 06/22/2021 History of COVID-19 [Z86.16] 07/19/2022 Medication management [Z79.899] 07/19/2022 Neck pain [M54.2] 01/28/2024 Acute pain of left shoulder [M25.512] 01/28/2024 Radicular pain in left arm [M79.2] 01/28/2024 Left hip pain [M25.552] 01/28/2024 Encounter for screening for diabetes mellitus [*07/30/2024 Trochanteric bursitis of left hip [M70.62] 08/19/2024 Other instructions from your clinician: GENERAL INFORMATION: Pneumonia is a lung infection caused by bacteria, viruses, or bacteria-like germs. It usually cannot be spread to other people. INSTRUCTIONS: 1. If you are given a prescription for antibiotics, take them as ordered by your doctor until they are all gone. 2. Use a cool-mist humidifier or vaporizer to increase air moisture. This will make it easier for you to breathe. Do not use hot steam. 3. Rest in until your temperature is normal (98.6 F or 37 C) and your chest pain and shortness of breath are gone. 4. Slowly restart your normal activities. You may feel weak and tired for up to six weeks. 5. Drink at least one glass of water or other liquid every hour. This will help thin sputum and make it easier to cough up. 6. If you have chest pain, applying a heating pad or warm compresses for 10 to 20 minutes several times a day to the painful area may lessen the pain. 7. Take several deep breaths and then cough frequently during the day. This will help get rid of the infection. 8. You may take medicines that you can buy without a prescription to treat pain and fever. Use cough medicine only if absolutely necessary as coughing helps clear the infection. CONTACT YOUR DOCTOR IF: 1. Your temperature is over 102 F (39 C). 2. Your chest pain, fever or chills do not get better with medicine in 2-3 days. 3. You develop nausea, vomiting or diarrhea. 4. You are coughing up large amounts of bloody sputum. 5. You have any problems that may be related to the medicine that you are taking (such as rash, itching, swelling, or stomach pain). RETURN TO THE EMERGENCY DEPARTMENT IF: 1. You have a lot of trouble breathing or you have dark or bluish fingernails, toenails, or skin. 2. You have a severe headache, neck stiffness, or feel confused. Prescriptions ordered this encounter Disp Refills Start End ALBUTEROL SULFATE HFA 90 MCG/ACTUATI* 1 ea* 0 12/29/2024 Cmt: Generic or brand: dispense inhaler preferred by patient/insurance unless KELVIN flag is selected. Route: INH Sig: Inhale 2 puffs as instructed every 4 hours as needed for wheezing/shortness of breath. DOXYCYCLINE HYCLATE 100 MG CAPSULE 10 c* 0 12/29/2024 01/03/2025 Route: PO Sig: Take 1 capsule by mouth two times a day for 5 days. POLYMYXIN B SULFATE 10,000 UNIT-TRIM* 10 mL 0 12/29/2024 Route: OU Sig: Use 1 drop in both eyes four times daily. Level of Service: OFFICE/OUTPATIENT ESTABLISHED MOD MDM 30 MIN [05408] LOS History for Encounter Level of Service: OFFICE/OUTPATIENT ESTABLISHED SF MDM 10 MIN[86237] Date AND Time: 12-29-2024 5:55 PM Recorded by User: FAMILIA LÓPEZ Letter Text Encounter Status:Closed by FAMILIA LÓPEZ on 12/29/24 PROGRESS Observed: 11/11/2024 8:41 AM Status: COMPLETED Source: [facility] HNO ID: [id number] Author: DAVID SANCHEZ, PT Service: ? Author Type: Physical Therapist Type: Progress Notes Filed: 11/11/2024 08:41 Note Text: 11/11/2024 [facility] PHYSICAL THERAPY DISCONTINUANCE OF CARE Plan of Care Period: Start of Care Date: 08/18/24 Last Visit Date: 09/11/2024 Therapy Program: The following is a summary of the interventions provided for this episode of care; Therapeutic exercise Assessment: Based on most recent visit, patient was progressing as expected toward functional goals based on home exercise program compliance, pain levels, and documented subjective information on progress. Unable to formally assess goal achievement, as patient has not returned to therapy or scheduled additional follow-up appointments. Reason for Discontinuation of Care: Patient has not returned to therapy or scheduled additional follow-up appointments. David Sanchez, PT PROGRESS Observed: 10/27/2024 9:19 AM Status: COMPLETED Source: [facility] HNO ID: [id number] Author: ?, ?, ? Service: ? Author Type: LICENSED NURSE Type: Progress Notes Filed: 10/27/2024 09:21 Note Text: Patient presents for Shingrix vaccine. Denies any problems at this time. Tolerated injection well. Shira Gore LPN CNNURSE Observed: 10/27/2024 9:15 AM Status: COMPLETED Source: [facility] G[facility] SANT[facility]AGO ([id number]) 1960 F Date Time Provider Department 10/27/24 9:15 AM [facility] During your visit today, we recorded the following information about you: SHIRA GORE 10/27/2024 9:21 AM Signed Patient presents for Shingrix vaccine. Denies any problems at this time. Tolerated injection well. Shira Gore LPN Referring Provider: CHI ARIAS [[id number]] Allergies As of Date: 10/27/2024 Noted Allergy Reaction SULFA (SULFONAMIDE ANTIBIOTICS) 04/11/2005 2 - Rash Date Reviewed: 09/16/2024 Reviewed by: Candie Reese MA - Fully Assessed Reason for Visit: Imm/Inj [58] Primary Visit Diagnosis:Encounter for immunization [Z23] Prescriptions as of 10/27/2024 - metroNIDAZOLE (METROGEL) 0.75 % Topical Gel Apply to affected area two times a day. - lansoprazole (PREVACID) 30 mg capsule Take 1 capsule by mouth once daily. - lisinopril-hydroCHLOROthiazide (ZESTORETIC) 10-12.5 mg per tablet Take 1 tablet by mouth every morning. - Multivitamin capsule Take 1 capsule by mouth once daily. Problem List As Of Date 10/27/2024 Noted Resolved Essential hypertension, benign [I10] 06/09/2009 Obesity, Class III, BMI 40-49.9 (morbid obesity*06/09/2009 07/15/2018 Hyperlipidemia, mixed [E78.2] 06/10/2009 Moderate asthma without complication [J45.909] 12/02/2011 Vaginitis [N76.0] 09/10/2012 08/11/2019 Rosacea [L71.9] 12/13/2012 Impaired fasting glucose [R73.01] 01/24/2013 07/15/2018 Lichen sclerosus [L90.0] 02/11/2013 07/25/2023 Lactose intolerance [E73.9] 07/07/2016 Obesity, Class II, BMI 35-39.9 [E66.812] 08/11/2019 GERD without esophagitis [K21.9] 06/22/2021 Well adult exam [Z00.00] 06/22/2021 History of COVID-19 [Z86.16] 07/19/2022 Medication management [Z79.899] 07/19/2022 Neck pain [M54.2] 01/28/2024 Acute pain of left shoulder [M25.512] 01/28/2024 Radicular pain in left arm [M79.2] 01/28/2024 Left hip pain [M25.552] 01/28/2024 Encounter for screening for diabetes mellitus [*07/30/2024 Trochanteric bursitis of left hip [M70.62] 08/19/2024 Encounter Status:Closed by SHIRA GORE on 10/27/24 URINALYSIS COMPLETE PNL UR Collected: 10/14/2024 5:28 PM Status: F Source: [facility] Order Comment: Specimen Type : URINE SPECIMEN Ordering Facility: [facility] Address: [address] [place] [address] TYPE CODE TESTS RESULT OUT OF RANGE REFERENCE UNITS LAB 5778-6(LOINC) Color Ur Yellow Yellow LAB 55553-2(LOINC) Clarity Spec Clear Clear LAB 5792-7(LOINC) Glucose Ur Strip-mCnc Negative Negative LAB 5770-3(LOINC) Bilirub Ur Ql Strip Negative Negative LAB 2514-8(LOINC) Ketones Ur Strip Negative Negative LAB 5811-5(LOINC) Sp Gr Ur Strip 1.017 1.005-1.030 LAB 5794-3(LOINC) Hgb Ur Ql Strip Negative Negative LAB 5803-2(LOINC) pH Ur Strip 6.0 <8.5 LAB 5804-0(LOINC) Prot Ur Strip-mCnc Negative Negative LAB 5818-0(LOINC) Urobilinogen Ur Strip 0.2 EU/dL 0.2-1.0 EU/dL LAB 5802-4(LOINC) Nitrite Ur Ql Strip Negative Negative LAB 5799-2(LOINC) Leukocyte esterase Ur Ql Strip 1+ Abnormal Negative LAB 5821-4(LOINC) WBC #/area UrnS HPF 0-5 /HPF 0-5 /HPF LAB 66487-3(LOINC) RBC #/area UrnS HPF 0-2 /HPF 0-2 /HPF LAB 5769-5(LOINC) Bacteria #/area UrnS HPF Negative Negative /HPF LAB 5787-7(LOINC) Epi Cells #/area UrnS HPF None Seen /HPF LAB 5796-8(LOINC) Hyaline Casts #/area UrnS LPF 0 /LPF 0 /LPF Performed By: #### [id number] # ### [facility] CLIA [id number] [address] [place] [address] STATES OF [facility] DEPRECATED HGB A1C BLD Collected: 10/14 4:25 PM Status: F Source: [facility] Order Comment: Specimen Type : BLOOD SPECIMEN Ordering Facility: [facility] Address: [address] [place] [address] TYPE CODE TESTS RESULT OUT OF RANGE REFERENCE UNITS LAB 4548-4(INC) HbA1c MFr Bld 5.4 4.3-5.6 % Result Comment: [employer] guidelines indicate that patients with HgbA1c in the range 5.7-6.4% are at increased risk for development of diabetes, and intervention by lifestyle modification may be beneficial. HgbA1c greater or equal to 6.5% is considered diagnostic of diabetes. LAB 81223-7(LOINC) Est. average glucose Bld gHb Est-mCnc 108 mg/dL Result Comment: eAG: (Estima lidia average glucose) is a calculated value from HgbA1c and is cash posting representative of the average blood glucose level in the last 2-3 month period. Performed By: #### 54575-7 # ### [facility] CLIA [id number] [address] [place] [address] [place] COMP METAB 2000 PNL SERPL Collected: 4:25 PM Status: F Source: [facility] Order Comment: Specimen Type : BLOOD SPECIMEN Ordering Facility: [facility] Address: [address] [place] [address] TYPE CODE TESTS RESULT OUT OF RANGE REFERENCE UNITS LAB 2885-2(LOINC) Prot SerPl-mCnc 7.0 6.3-8.0 g/dL LAB 1751-7(LOINC) Albumin SerPl-mCnc 4.3 3.9-4.9 g/dL LAB 51195-5(LOINC) Calcium SerPl-mCnc 9.5 8.5-10.2 mg/dL LAB 1975-2(LOINC) Bilirub SerPl-mCnc 0.3 0.2-1.3 mg/dL LAB 6768-6(LOINC) ALP SerPl-cCnc 68 34-123 U/L LAB 1920-8(LOINC) AST SerPl-cCnc 24 13-35 U/L LAB 1742-6(LOINC) ALT SerPl-cCnc 27 7-38 U/L LAB 2345-7(LOINC) Glucose SerPl-mCnc 94 74-99 mg/dL Result Comment: The [place] [employer] (ADA) provides guidance for cutoff values for fasting glucose and random glucose. The ADA defines fasting as no caloric intake for at least 8 hours. Fasting plasma glucose results between 100 to 125 mg/dL indicate increased risk for diabetes (prediabetes). Fasting plasma glucose results greater than or equal to 126 mg/dL meet the criteria for diagnosis of diabetes. In the absence of unequivocal hyperglycemia, results should be confirmed by repeat testing. In a patient with classic symptoms of hyperglycemia or hyperglycemic crisis, random plasma glucose results greater than or equal to 200 mg/dL meet the criteria for diagnosis of diabetes. Reference: Standards of Medical Care in Diabetes 2016, [place] [employer]. Diabetes Care. 2016.39(Suppl 1). LAB 3094-0(LOINC) BUN SerPl-mCnc 19 7-21 mg/ dL LAB 2160-0(LOINC) Creat SerPl-mCnc 0.60 0.58-0.96 mg/dL LAB 2951-2(LOINC) Sodium SerPl-sCnc 138 136-144 mmol/L LAB 2823-3(LOINC) Potassium SerPl-sCnc 4.4 3.7-5.1 mmol/L LAB 2075-0(LOINC) Chloride SerPl-sCnc 103 98-107 mmol/L LAB 2028-9(LOINC) CO2 SerPl-sCnc 24 22-30 mmo l/L LAB 56979-8(LOINC) Anion Gap SerPl-sCnc 11 8-15 mmol/L LAB 55956-4(LOINC) Creatinine + eGFR Pnl SerPlBld 101 >=60 mL/min/1 .73m??? Result Comment: Estimated Gl omerular Filtration Rate (eGFR) is calculated using the 2020 CKD-EPI creatinine equation. This equation utilizes serum creatinine, sex, and age as parameters. The creatinine assay has traceable calibration to isotope dilution-mass spectrometry. Refer to KDIGO guidelines for clinical interpretation. In patients with unstable renal function, e.g. those with acute kidney injury, the eGFR may not accurately reflect actual GFR. Performed By: #### 69993-9, LIPNF, 29104-6, 2132-9 #### [facility] CLIA [id number] [address] [place] [address] [place] LIPID PANEL, NONFASTING Collected: 10/14/2024 4:25 PM Status: F Source: [facility] Order Comment: Specimen Type : BLOOD SPECIMEN Ordering Facility: [facility] Address: [address] [place] [address] TYPE CODE TESTS RESULT OUT OF RANGE REFERENCE UNITS LAB CHOLNF TOTAL CHOLESTEROL NF 193 <200 mg/dL Result Comment: <200 mg/dL, Desirable 200-239 mg/dL, Borderline high >239 mg/dL, High LAB TRIGNF TRIGLYCERIDES, NF 215 High <150 mg/dL Result Comment: <150 mg/dL, Normal 150-199 mg/dL, Borderline high 200-499 mg/dL, High >499 mg/dL, Very high LAB HDLNF HDL CHOLESTEROL, NF 58 >39 mg/dL Result Comment: 40-59 mg/dL, Acceptable >59 mg/dL, High: Negative risk factor for coronary heart disease <40 mg/dL, Low: Positive risk factor for coronary heart disease LAB LDLNF LDL CHOLESTEROL, NF 92 <100 mg/dL Result Comment: <100 mg/dL, Optimal 100-129 mg/dL, Near optimal/above optimal 130-159 mg/dL, Borderline high 160-189 mg/dL, High >189 mg/dL, Very high Secondary prevention optimal LDL Cholesterol levels are recommended to be < 70 mg/dL LAB NOHDLN NON HDL CHOL, NF 135 High <130 mg/dL Result Comment: <130 mg/dL, Optimal 130-159 mg/dL, Near optimal/above optimal 160-189 mg/dL, Borderline high 190-219 mg/dL, High >219 mg/dL, Very high Secondary prevention optimal non HDL Cholesterol levels are recommended to be <100 mg/dL LAB VLDLNF VLDL CHOLESTEROL, NF 43 High <30 mg/dL LAB TCHDLN T CHOL/HDL RATIO NF 3.33 <5.10 mg/dL LAB LDLHDN LDL/HDL RATIO, NF 1.59 <2.54 mg/dL Result Comment: Reference: 1. National Cholesterol Education Program ATP III Guideline At-A-Glance Quick Desk Reference: National Heart, Lung, and Blood Paint Bank. National Institutes of Health. 2001: NIH Publication No. 01-3305. 2. An International Atherosclerosis Society position paper: global recommendations for the management of dyslipidemia: executive summary, Atherosclerosis. 2014: 232(2):410-413. Performed By: #### 04221-9, LIPNF, , 2132-03 #### [facility] CLIA [id number] [address] [place] [address] [place] MAGNESIUM SERPL-MCNC Collected: 10/14/2024 4:25 PM S tatus: F Source: [facility] Order Comment: Specimen Type : BLOOD SPECIMEN Ordering Facility: [facility] Address: [address] [place] [address] TYPE CODE TESTS RESULT OUT OF RANGE REFERENCE UNITS LAB 06896-5(LOINC) Magnesium SerPl-mCnc 2.2 1.7-2.3 mg/dL Performed By: #### 02627-4, LIPNF, , 2132-03 #### [facility] CLIA [id number] [address] [place] [address] [place] VIT B12 SERPL-MCNC Collected: 10/14/2024 4:25 PM Sta tus: F Source: [facility] Order Comment: Specimen Type : BLOOD SPECIMEN Ordering Facility: [facility] Address: [address] [place] [address] TYPE CODE TESTS RESULT OUT OF RANGE REFERENCE UNITS LAB 2131-9(LOINC) Vit B12 SerPl-mCnc 656 157-6873 pg/mL Performed By: #### 96169-2, LIPNF, 55005-4, 2132-9 #### [facility] CLIA [id number] [address] [place] [address] [facility] US BREAST LTD RT Observed: 4:01 PM Status: F Source: [facility] * * *Final Report* * * DATE OF EXAM: Oct 14 2024 4:01PM KATE 0594 - [facility] US BREAST LTD RT / PROCEDURE REASON: Category 3 mammography result with short follow-up interval suggested for probab * * * * Physician Interpretation * * * * [place] [address] #[id number] - [facility] ESMER CRYSTAL #[id number] - [facility] US BREAST LTD RT HISTORY: 64 year-old patient seen for diagnostic evaluation of short term follow-up from a previous mammogram in the right breast. Patient is asymptomatic in the left breast. Patient states no personal history of breast cancer. COMPARISON STUDIES: The present examination has been compared to prior imaging studies dated 10/10/2023 (ultrasound), 10/10/2023 (mammogram), 04/15/2024 (mammogram) and 04/15/2024 (ultrasound). MAMMOGRAM TECHNIQUE: The study was acquired using full field digital technology and interpreted from soft copy. Digital Breast Tomosynthesis (DBT) images were obtained and used to assist in the interpretation of this examination. MAMMOGRAM FINDINGS: There are scattered areas of fibroglandular density. There is a stable focal asymmetry measuring 0.5 cm in the right breast. There are no significant interval changes. This is consistent with a complicated cyst. No suspicious masses, calcifications or other abnormalities are seen in either breast. ULTRASOUND TECHNIQUE: Targeted ultrasound of the indicated area was performed. Shaikh scale images were saved. ULTRASOUND FINDINGS: Ultrasound demonstrates a stable oval complicated cyst in the right breast at 9 o'clock, 5 cm from the nipple. Internal echotexture is hypoechoic. Color flow imaging demonstrates vascularity is not present. This is consistent with a complicated cyst. There are no suspicious findings in the imaged area. IMPRESSION: There is no mammographic or sonographic evidence of malignancy. Return to annual screening mammogram is recommended. Annual mammogram will be due in 1 year. BI-RADS Category 2: Benign RISK: Based on the Tyrer-Cuzick (TC) risk assessment model, this patient has a 5.6% lifetime risk of developing breast cancer, meaning they are at average risk for developing breast cancer. However, this is only an estimate based on available history provided on the patient's questionnaire. We encourage all patients to talk with their providers about these results, further recommendations for managing breast health, and appropriate supplemental screening options if the patient has dense breast tissue. Interpreting Radiologist: Jonathan Alexander M.D. Electronically signed on: 10/14/2024 Front Office Secretary: KARIE Transcriwiley Date/Time: Oct 14 2024 3:52P Dictated by : JONATHAN ALEXANDER MD This examination was interpreted and the report reviewed and electronically signed by: JONATHAN ALEXANDER MD on Oct 14 2024 4:12PM EST [id number] MANAN AVILAG W INDER MARAH Observed: 10/14/2024 3:31 PM Status: F Source: [facility] * * *Final Report* * * DATE OF EXAM: Oct 14 2024 3:31PM [facility] 0627 - MANAN DIAG W INDER MARAH / PROCEDURE REASON: Category 3 mammography result with short follow-up interval suggested for probab * * * * Physician Interpretation * * * * RESULT: [place] [id number] #[id number] - MANAN MARGARITAG W INDER MARAH #[id number] [place] [address] BREAST LTD RT HISTORY: 64 year-old patient seen for diagnostic evaluation of short term follow-up from a previous mammogram in the right breast. Patient is asymptomatic in the left breast. Patient states no personal history of breast cancer. COMPARISON STUDIES: The present examination has been compared to prior imaging studies dated 10/10/2023 (ultrasound), 10/10/2023 (mammogram), 04/15/2024 (mammogram) and 04/15/2024 (ultrasound). MAMMOGRAM TECHNIQUE: The study was acquired using full field digital technology and interpreted from soft copy. Digital Breast Tomosynthesis (DBT) images were obtained and used to assist in the interpretation of this examination. MAMMOGRAM FINDINGS: There are scattered areas of fibroglandular density. There is a stable focal asymmetry measuring 0.5 cm in the right breast. There are no significant interval changes. This is consistent with a complicated cyst. No suspicious masses, calcifications or other abnormalities are seen in either breast. ULTRASOUND TECHNIQUE: Targeted ultrasound of the indicated area was performed. Shaikh scale images were saved. ULTRASOUND FINDINGS: Ultrasound demonstrates a stable oval complicated cyst in the right breast at 9 o'clock, 5 cm from the nipple. Internal echotexture is hypoechoic. Color flow imaging demonstrates vascularity is not present. This is consistent with a complicated cyst. There are no suspicious findings in the imaged area. IMPRESSION: There is no mammographic or sonographic evidence of malignancy. Return to annual screening mammogram is recommended. Annual mammogram will be due in 1 year. BI-RADS Category 2: Benign RISK: Based on the Tyrer-Cuzick (TC) risk assessment model, this patient has a 5.6% lifetime risk of developing breast cancer, meaning they are at average risk for developing breast cancer. However, this is only an estimate based on available history provided on the patient's questionnaire. We encourage all patients to talk with their providers about these results, further recommendations for managing breast health, and appropriate supplemental screening options if the patient has dense breast tissue. Interpreting Radiologist: Jonathan Alexander M.D. Electronically signed on: 10/14/2024 Front Office Secretary: KARIE Transcribe Date/Time: Oct 14 2024 3:10P Dictated by: JONATHAN ALEXANDER MD This examination was interpreted and the report reviewed and electronically signed by: JONATHAN ALEXANDER MD on Oct 14 2024 4:12PM EST [id number] PROGRESS Observed: 10/14/2024 3:30 PM Status: COMPLETED Source: [facility] HNO ID: [id number] Author: NIKI VALENCIA RDMS Service: ? Author Type: Help Desk Intern Type: Progress Notes Filed: 10/14/2024 16:31 Note Text: Radiology Service Progress Note PATIENT NAME: Geri De Santiago DATE OF SERVICE: October 14, 2024 TIME: 4:30 PM PATIENT IDENTITY VERIFICATION COMPLETED USING TWO (2) IDENTIFIERS: Name and Date of confirmed by patient verbally. FALL SCREENING: Has the patient had 2 falls in the last year or 1 fall with injury or currently using an Ambulatory Assistive Device (Walker, Cane, Wheelchair, Crutches, etc.)? No PATIENT GENDER DATA: Assigned female at . status: : No status: NO. PATIENT RELEVANT IMPLANT DATA REVIEWED: Not Applicable PATIENT PRESENTS WITH AN IMPLANTABLE OR ATTACHED POSTAL SUPERVISOR: No RADIOLOGY DEPARTMENT: Ultrasound PERIPHERAL IV DATA: Not applicable SIGNED BY: Niki Valencia RDMS October 14, 2024 4:30 PM PROGRESS Observed: 10/14/2024 3:00 PM Status: COMPLETED Source: [facility] HNO ID: [id number] Author: SARAH NARANJO Mammo Tech Service: ? Author Type: Technologist Type: Progress Notes Filed: 10/14/2024 15:51 Note Text: Radiology Service Progress Note PATIENT NAME: Geri De Santiago DATE OF SERVICE: October 14, 2024 TIME: 3:51 PM PATIENT IDENTITY VERIFICATION COMPLETED USING TWO (2) IDENTIFIERS: Name and Date of confirmed by patient verbally. FALL SCREENING: Has the patient had 2 falls in the last year or 1 fall with injury or currently using an Ambulatory Assistive Device (Walker, Cane, Wheelchair, Crutches, etc.)? No PATIENT GENDER DATA: Assigned female at . status: : No status: NO. PATIENT RELEVANT IMPLANT DATA REVIEWED: Not Applicable PATIENT PRESENTS WITH AN IMPLANTABLE OR ATTACHED POSTAL SUPERVISOR: No RADIOLOGY DEPARTMENT: Mammography PERIPHERAL IV DATA: Not applicable SIGNED BY: Felton Hebert October 14, 2024 3:51 PM PROGRESS Observed: 09/16/2024 3:20 PM Status: COMPLETED Source: [facility] HNO ID: [id number] Author: GABBIE AZUL, DO Service: ? Author Type: Physician Type: Progress Notes Filed: 09/16/2024 23:39 Note Text: CHIEF COMPLAINT: Patient presents with: Left Hip - Established Patient, Pain PAIN EVALUATION 09/13/2024 1744 09/16/2024 1526 Pain Level: 3 3 Pain Location: Hip-Left Hip-Left Description: Aching;Sharp Sharp Duration Amount of Time: 10 6 Duration Units: Minutes Weeks Frequency: Intermittent Intermittent Intervention/Comfort measure: Medication;Reposition;Relaxation;Exercise;Massage;Pillow support;Positioning Reposition Comments: Only when standing after sitting, bending, lifting left leg, shaving left leg, putting on left shoe -- HISTORY OF PRESENT ILLNESS: Geri De Santiago is a 64 year old female presenting for follow-up of left hip pain. Since last visit, she is doing much better. Pain is 3/10 and intermittent. She still struggles to tie a shoe or get up off the ground with pain primarily in the groin and anterolateral hip. Current treatment includes USG GTB CSI, PT. Past medical, surgical, social and family history were reviewed. Allergies and current medications reviewed. PHYSICAL EXAMINATION: Body Habitus: well nourished and no acute distress Orientation: Normal: Oriented to person, place and time Psych: normal Specific MSK Exam LEFT HIP: Inspection - Deformity: No., Atrophy: No. Gait - normal SLR - right Negative, left Negative Palpation - Greater trochanter: Negative Gluteus medius: Negative Piriformis: Positive ROM - Left hip: Flexion: 100 IR: 10 ER: 30 Pain with ROM: Yes Strength Supine HF 4+/5 with mild pain Upright HF 5/5 with no pain Sensation - normal to light touch Reflexes - N/A Special Tests - Anterior impingement: Positive Dynamic labral stress: Positive HSABBIR: Negative IMAGING: No imaging was performed today. Last US Hip/Pelvis - Impression Only US HIP LEFT Exam End: 06/20/2024 3:21 PM (Final result) Impression: IMPRESSION: Mild gluteus minimus tendinosis. Mild greater trochanteric bursitis. ... CLINICAL IMPRESSION: (M25.552) Pain in left hip (primary encounter diagnosis) (M16.12) Primary osteoarthritis of left hip (M70.62) Trochanteric bursitis of left hip (M67.959) Tendinopathy of gluteus medius MSK US as above - significant relief with USG GTB CSI. Pain that is still present is more intra-articular, XR with mild to moderate OA. RECOMMENDATION/PLAN: - Discussed USG IA hip CSI - last bill with me in office was $1000 out of pocket therefore we will hold off on CSI at this time until she talks to her insurance - Continue PT with HEP as outlined - Discussed return back into activity Follow up: two months - consider injection at that time Films prior to visit: No additional imaging warranted. Written instructions (see patient instructions) and verbal health teaching given to patient, patient verbalizes understanding and agrees with treatment plan. Electronically Signed: Gabbie Azul DO Sports Medicine Physician Medical Decision Making CNOV Observed: 09/16/2024 3:20 PM Status: COMPLETED Source: [facility] Office Visit (ORTHBR) GERI DE SANTIAGO ([id number]) 1960 F Date Time Provider Department 09/16/24 3:20 PM GABBIE AZUL During your visit today, we recorded the following information about you: Gabbie Azul DO 09/16/2024 11:39 PM Signed CHIEF COMPLAINT: Patient presents with: Left Hip - Established Patient, Pain PAIN EVALUATION 09/13/2024 6384 09/16/2024 1526 Pain Level: 3 3 Pain Location: Hip-Left Hip-Left Description: Aching;Sharp Sharp Duration Amount of Time: 10 6 Duration Units: Minutes Weeks Frequency: Intermittent Intermittent Intervention/Comfort measure: Medication;Reposition;Relaxation;Exercise;Massage;Pillow support;Positioning Reposition Comments: Only when standing after sitting, bending, lifting left leg, shaving left leg, putting on left shoe -- HISTORY OF PRESENT ILLNESS: Geri De Santiago is a 64 year old female presenting for follow-up of left hip pain. Since last visit, she is doing much better. Pain is 3/10 and intermittent. She still struggles to tie a shoe or get up off the ground with pain primarily in the groin and anterolateral hip. Current treatment includes USG GTB CSI, PT. Past medical, surgical, social and family history were reviewed. Allergies and current medications reviewed. PHYSICAL EXAMINATION: Body Habitus: well nourished and no acute distress Orientation: Normal: Oriented to person, place and time Psych: normal Specific MSK Exam LEFT HIP: Inspection - Deformity: No., Atrophy: No. Gait - normal SLR - right Negative, left Negative Palpation - Greater trochanter: Negative Gluteus medius: Negative Piriformis: Positive ROM - Left hip: Flexion: 100 IR: 10 ER: 30 Pain with ROM: Yes Strength Supine HF 4+/5 with mild pain Upright HF 5/5 with no pain Sensation - normal to light touch Reflexes - N/A Special Tests - Anterior impingement: Positive Dynamic labral stress: Positive SHABBIR: Negative IMAGING: No imaging was performed today. Last US Hip/Pelvis - Impression Only US HIP LEFT Exam End: 06/20/2024 3:21 PM (Final result) Impression: IMPRESSION: Mild gluteus minimus tendinosis. Mild greater trochanteric bursitis. ... CLINICAL IMPRESSION: (M25.552) Pain in left hip (primary encounter diagnosis) (M16.12) Primary osteoarthritis of left hip (M70.62) Trochanteric bursitis of left hip (M67.959) Tendinopathy of gluteus medius MSK US as above - significant relief with USG GTB CSI. Pain that is still present is more intra-articular, XR with mild to moderate OA. RECOMMENDATION/PLAN: - Discussed USG IA hip CSI - last bill with me in office was $1000 out of pocket therefore we will hold off on CSI at this time until she talks to her insurance - Continue PT with HEP as outlined - Discussed return back into activity Follow up: two months - consider injection at that time Films prior to visit: No additional imaging warranted. Written instructions (see patient instructions) and verbal health teaching given to patient, patient verbalizes understanding and agrees with treatment plan. Electronically Signed: Gabbie Azul DO Sports Medicine Physician Medical Decision Making Allergies As of Date: 09/16/2024 Noted Allergy Reaction SULFA (SULFONAMIDE ANTIBIOTICS) 04/11/2005 2 - Rash Date Reviewed: 09/16/2024 Reviewed by: Candie Reese MA - Fully Assessed Reason for Visit: Established Patient [175] Pain [78] Primary Visit Diagnosis:Pain in left hip [M25.552] Other Visit Diagnoses:Primary osteoarthritis of left hip [M16.12] Trochanteric bursitis of left hip [M70.62] Tendinopathy of gluteus medius [M67.959] Prescriptions as of 09/16/2024 - metroNIDAZOLE (METROGEL) 0.75 % Topical Gel Apply to affected area two times a day. - lansoprazole (PREVACID) 30 mg capsule Take 1 capsule by mouth once daily. - lisinopril-hydroCHLOROthiazide (ZESTORETIC) 10-12.5 mg per tablet Take 1 tablet by mouth every morning. - Multivitamin capsule Take 1 capsule by mouth once daily. Problem List As Of Date 09/16/2024 Noted Resolved Essential hypertension, benign [I10] 06/09/2009 Obesity, Class III, BMI 40-49.9 (morbid obesity*06/09/2009 07/15/2018 Hyperlipidemia, mixed [E78.2] 06/10/2009 Moderate asthma without complication [J45.909] 12/02/2011 Vaginitis [N76.0] 09/10/2012 08/11/2019 Rosacea [L71.9] 12/13/2012 Impaired fasting glucose [R73.01] 01/24/2013 07/15/2018 Lichen sclerosus [L90.0] 02/11/2013 07/25/2023 Lactose intolerance [E73.9] 07/07/2016 Obesity, Class II, BMI 35-39.9 [E66.812] 08/11/2019 GERD without esophagitis [K21.9] 06/22/2021 Well adult exam [Z00.00] 06/22/2021 History of COVID-19 [Z86.16] 07/19/2022 Medication management [Z79.899] 07/19/2022 Neck pain [M54.2] 01/28/2024 Acute pain of left shoulder [M25.512] 01/28/2024 Radicular pain in left arm [M79.2] 01/28/2024 Left hip pain [M25.552] 01/28/2024 Encounter for screening for diabetes mellitus [*07/30/2024 Trochanteric bursitis of left hip [M70.62] 08/19/2024 Level of Service: OFFICE/OUTPATIENT ESTABLISHED LOW [facility] 20 MIN [[id number]] Additional E/M codes: VISIT CPLX INHERENT EANDM ASSOC WITH MED * Encounter Status:Closed by GABBIE AZUL on 09/16/24 THERAPY NT Observed: 09/11/2024 5:50 PM Status: COMPLETED Source: [facility] HNO ID: [id number] Author: DAVID SANCHEZ, PT Service: ? Author Type: Physical Therapist Type: Therapy (PT/OT/Speech/Resp) Filed: 09/11/2024 17:50 Note Text: Program_ID:[id number] Access Code: [email or web address] URL: [email or web address] Date: 09-11-2024 Prepared By: David Sanchez Program Notes Exercises - Clamshell with Resistance - 2 x daily - 7 x weekly - 2-3 sets - 8-12 reps - Sidelying Hip Abduction - 2 x daily - 7 x weekly - 2-3 sets - 8 reps - Supine Bridge with Resistance Band - 2 x daily - 7 x weekly - 2-3 sets - 10-12 reps - Seated Gluteal Stretch - 2-3 x daily - 7 x weekly - 3 sets - reps - Side Stepping with Resistance at Thighs - 2 x daily - 7 x weekly - 3 sets - reps - Squat with Chair Touch and Resistance Loop - 2 x daily - 7 x weekly - 2-3 sets - 10-12 reps PROGRESS Observed: 09/11/2024 5:20 PM Status: COMPLETED Source: [facility] HNO ID: [id number] Author: DAVID SANCHEZ, PT Service: ? Author Type: Physical Therapist Type: Progress Notes Filed: 09/11/2024 17:57 Note Text: Episode Visit Count: 2 Therapist That Will Accept/Oversee The Plan Of Care: David Sanchez PT. Start of Care Date: 08/18/24 Onset Date: 08/20/23 Patient Identified by Name and Date of : Yes REHABILITATION AND SPORTS THERAPY PHYSICAL THERAPY TREATMENT NOTE ASSESSMENT: Geri De Santiago tolerated the session with expected muscle soreness. She demonstrated tolerance to increased load on added exercises/HEP.. The patient will continue to benefit from ongoing skilled physical therapy to progress toward set goals. Current Frequency: 1x/month Duration: 1 visit Total Number of Visits Planned: 1 PLAN FOR NEXT VISIT: Review, Correct AND Progress Exercises. Soft tissue PRN. SUBJECTIVE: 42 post-cortisone injection. Reports L Hip is better than it has been; can get into AND out of the car without pain, sleeping on the L Side (preferred), bending, ;ascending stairs are better, still difficult and aches but she is able to alternate. Trouble walking after prolonged sitting, however walking gets better with more of it, it can feel relatively normal after awhile. HEP does not cause any issue, doing 2x a day. See's ortho next week. Functional Limitations: (Tieing her shoes, walking after prolonged sitting.) Pain: Pain Pain Level: 0 (Denies pain coming in.) Pain Location: Hip - Left Post Treatment Pain Post Treatment Pain Level: Better Post Treatment Pain Location: Hip - Left OBJECTIVE MEASURES WITH LEVEL OF FUNCTION: Able to bend to the floor to take GTB off from around legs without L Hip pain. TREATMENT: Therapeutic Exercise: 1: *Added exercises below, reprinted handouts. Discussed and demoed with patient and she demonstrates and states understanding of new exercises. 2: L Clamshells: 3x8, GTB 3: Squats to table, GTB above knees: 3x8. 4: L Hip ABD: 2x10. (0-100%). 5: L Hip ABD: 2x10. (50-100%). 6: Lateral Monster Walks: 3 Laps of 10 Feet, GTB above knees. 7: Glute Bridge on Heels: 3x10, GTB above knees Skilled Intervention: Patient was educated in proper exercise technique and purpose for exercises. Reviewed and educated patient on additions/changes for home exercise program as above (*). Skilled judgment was used in selection of appropriate interventions. Provided written instruction for home exercise program to facilitate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 leg in internal rotation and extended. Tenderness to palpation along the trochanteric ridge. No evidence for gluteus minimus tendinitis. Radiologic review: X-rays ordered previously to my interpretation shows marginal loss of cartilage on the left hip. 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 Recommendation is a musculoskeletal ultrasound to delineate the integrity of both the gluteus medius as well as whether or not there is bursitis of the greater trochanter. This will help direct injection therapy for which we would propose to have her seen by Dr. Azul for that after the ultrasound but also coupled with the appropriate physical therapy. Patient will follow-up after the ultrasounds been completed. At the conclusion of the office visit, the patient was asked if they had any questions regarding the diagnosis or care. Also, ample time was provided for the patient to ask any questions regarding the diagnosis therefore plan of care. All the patient's questions if asked were answered to their satisfaction. This note was partially generated using Glints voice recognition system and as such may contain grammatical or word errors Osmin Nguyễn MD Referring Provider: CHI ARIAS [[id number]] Allergies As of Date: 05/07/2024 Noted Allergy Reaction SULFA (SULFONAMIDE ANTIBIOTICS) 04/11/2005 2 - Rash Date Reviewed: 05/07/2024 Reviewed by: Osmin Nguyễn MD - Fully Assessed Reason for Visit: New [850212] Pain [78] Primary Visit Diagnosis:Tendinopathy of gluteus medius [M67.959] Order(s):CONSULT TO ORTHOPAEDICS [9026] Order #: [id number]: 1 HIP LEFT [1631900] Order #: [id number] FUTURE Prescriptions as of 05/07/2024 - Phentermine HCl 37.5 mg tablet Take 1 tablet by mouth daily before breakfast for 90 days. - lansoprazole (PREVACID) 30 mg capsule Take 1 capsule by mouth once daily. - lisinopril-hydroCHLOROthiazide (ZESTORETIC) 10-12.5 mg per tablet Take 1 tablet by mouth every morning. - predniSONE (DELTASONE) 10 mg tablet Take 6 tabs by mouth for 3 days then 4 tabs a day for 3 days then 2 tabs a day for 3 days and then 1 tab a day for 3 days. - metFORMIN ER (GLUCOPHAGE XR) 750 mg 24 hr tablet Take 2 tablets by mouth daily with dinner. - metroNIDAZOLE (METROGEL) 0.75 % Topical Gel Apply to affected area two times a day. - Multivitamin capsule Take 1 capsule by mouth once daily. Problem List As Of Date 05/07/2024 Noted Resolved Essential hypertension, benign [I10] 06/09/2009 Obesity, Class III, BMI 40-49.9 (morbid obesity*06/09/2009 07/15/2018 Hyperlipidemia, mixed [E78.2] 06/10/2009 Moderate asthma without complication [J45.909] 12/02/2011 Vaginitis [N76.0] 09/10/2012 08/11/2019 Rosacea [L71.9] 12/13/2012 Impaired fasting glucose [R73.01] 01/24/2013 07/15/2018 Lichen sclerosus [L90.0] 02/11/2013 07/25/2023 Lactose intolerance [E73.9] 07/07/2016 Obesity, Class II, BMI 35-39.9 [E66.812] 08/11/2019 GERD without esophagitis [K21.9] 06/22/2021 Well adult exam [Z00.00] 06/22/2021 History of COVID-19 [Z86.16] 07/19/2022 Medication management [Z79.899] 07/19/2022 Neck pain [M54.2] 01/28/2024 Acute pain of left shoulder [M25.512] 01/28/2024 Radicular pain in left arm [M79.2] 01/28/2024 Left hip pain [M25.552] 01/28/2024 Encounter Status:Closed by OSMIN NGUYỄN on 05/07/24 JARRELL Observed: 05/07/2024 12:00 AM Status: COMPLETED Source: [facility] Telephone (RULTTB) GERI DE SANTIAGO ([id number]) 1960 F Date Time Provider Department 05/07/24 LUIS HERNANDEZ RULTTB During your visit today, we recorded the following information about you: Luis Hernandez PCNA 05/07/2024 3:04 PM Signed Visit Type: ANY MSK Visit Length: 45, 50 OR 60 MINUTES Order Name/Protocol: US HIP LT; LATERAL-EVAL FOR GLUTE MED TENDONITIS/GREATER TROCHANTERIC BURSITIS Preferred Provider: N/A Comment: Please ask if the patient has ever had any prior surgery to their LT hip. If so, upgrade the visit type to an MSK1 and notate the surgical hx in the Appointment Note. Location: Depending on the surgical hx, this patient can have this exam performed at any of our four locations. Slot held: N/A Wil Arteaga 05/07/2024 3:16 PM Signed PT scheduled for MSK US on 06/30/24 at 11:15 AM at [facility]. Allergies As of Date: 05/07/2024 Noted Allergy Reaction SULFA (SULFONAMIDE ANTIBIOTICS) 04/11/2005 2 - Rash Date Reviewed: 05/07/2024 Reviewed by: Osmin Nguyễn MD - Fully Assessed Reason for Visit: Appointment [186] Prescriptions as of 05/07/2024 - Phentermine HCl 37.5 mg tablet Take 1 tablet by mouth daily before breakfast for 90 days. - lansoprazole (PREVACID) 30 mg capsule Take 1 capsule by mouth once daily. - lisinopril-hydroCHLOROthiazide (ZESTORETIC) 10-12.5 mg per tablet Take 1 tablet by mouth every morning. - predniSONE (DELTASONE) 10 mg tablet Take 6 tabs by mouth for 3 days then 4 tabs a day for 3 days then 2 tabs a day for 3 days and then 1 tab a day for 3 days. - metFORMIN ER (GLUCOPHAGE XR) 750 mg 24 hr tablet Take 2 tablets by mouth daily with dinner. - metroNIDAZOLE (METROGEL) 0.75 % Topical Gel Apply to affected area two times a day. - Multivitamin capsule Take 1 capsule by mouth once daily. Problem List As Of Date 05/07/2024 Noted Resolved Essential hypertension, benign [I10] 06/09/2009 Obesity, Class III, BMI 40-49.9 (morbid obesity*06/09/2009 07/15/2018 Hyperlipidemia, mixed [E78.2] 06/10/2009 Moderate asthma without complication [J45.909] 12/02/2011 Vaginitis [N76.0] 09/10/2012 08/11/2019 Rosacea [L71.9] 12/13/2012 Impaired fasting glucose [R73.01] 01/24/2013 07/15/2018 Lichen sclerosus [L90.0] 02/11/2013 07/25/2023 Lactose intolerance [E73.9] 07/07/2016 Obesity, Class II, BMI 35-39.9 [E66.812] 08/11/2019 GERD without esophagitis [K21.9] 06/22/2021 Well adult exam [Z00.00] 06/22/2021 History of COVID-19 [Z86.16] 07/19/2022 Medication management [Z79.899] 07/19/2022 Neck pain [M54.2] 01/28/2024 Acute pain of left shoulder [M25.512] 01/28/2024 Radicular pain in left arm [M79.2] 01/28/2024 Left hip pain [M25.552] 01/28/2024 Encounter Status:Closed by WIL ARTEAGA on 05/07/24 PROGRESS Observed: 05/02/2024 10:56 AM Status: COMPLETED Source: [facility] HNO ID: [id number] Author: DAVID SANCHEZ PT Service: ? Author Type: Physical Therapist Type: Progress Notes Filed: 05/02/2024 10:57 Note Text: 05/02/2024 [facility] REH[facility]ILITATION [facility] SPORTS THERAPY PHYSICAL THERAPY DISCONTINUANCE OF CARE Plan of Care Period: Start of Care Date: 01/28/24 Last Visit Date: 03/03/2024 Therapy Program: The following is a summary of the interventions provided for this episode of care; Therapeutic exercise, Manual therapy, Self-fci management, and Gait training Assessment: The following is the goal status: Updated: 03/03/24. Goals for Episode of Care: created on 01/28/24 through 03/30/24 [place]engel in home exercise program. (MET per patient) Patient will decrease pain rating by 2 points to meet minimal clinical important difference for numeric pain rating scale. (Progressing) Patient will demo INC strength of Left Supraspinatus AND Left Hip Flexor AND Glute on MMT for improved ADL/IADLs. (Progressing Towards) Restore pain free cervical ROM to WNL to allow for no limitation when driving. (Progressing) Restore pain free use of the L Shoulder at and above shoulder level. (Progressing) Restore pain free walking and stairs without limitations. (Progressing) Patient Goals: Alleviate Pain and Improve Function. Based on the most recent progress report, patient was progressing faster than expected toward functional goals for the neck AND shoulder. However, slower than expected towards goals for the L Hip. Reason for Discontinuation of Care: Patient has not returned to therapy or scheduled additional follow-up appointments. David Sanchez, PT [facility] [employer] BREAST HYGIEIA RT Observed: 10:11 AM Status: F Source: [facility] * * *Final Report* * * DATE OF EXAM: Apr 15 2024 10:11AM WRU 0594 - [employer] BREAST HYGIEIA RT / PROCEDURE REASON: Abnormal mammogram * * * * Physician Interpretation * * * * [facility] [place] [id number] HISTORY: Patient is 63 years old and is seen for diagnostic exam and abnormal mammogram in the right breast at 9 o'clock. The patient has no personal history of cancer. COMPARISON STUDIES: The present examination has been compared to prior imaging studies dated 04/25/2023 (mammogram), 04/25/2023 (ultrasound), 10/10/2023 (ultrasound), 10/10/2023 (mammogram) and 04/15/2024 (mammogram). ULTRASOUND TECHNIQUE: Targeted ultrasound of the indicated area was performed. Shaikh scale images were saved. ULTRASOUND FINDINGS: There is an oval lesion with circumscribed margins measuring 0.6 x 0.3 x 0.5 cm in the posterior depth region of the right breast at 9 o'clock located 5 cm from the nipple. There are no significant changes from the prior study. This finding likely represents a complex cyst. IMPRESSION: Lesion in the right breast is probably benign. Mammographic and sonographic follow-up in 6 months is recommended. BI-RADS Category 3: Probably Benign RISK: Based on the Tyrer-Cuzick (TC) risk assessment model, this patient has a 5.8% lifetime risk of developing breast cancer, meaning they are at average risk for developing breast cancer. However, this is only an estimate based on available history provided on the patient's questionnaire. We encourage all patients talk with their providers about these results, further recommendations for managing breast health, and appropriate supplemental screening options if the patient has dense breast tissue. Interpreting Radiologist: Jonathan Alexander M.D. Electronically signed on: 04/15/2024 Front Office Secretary: KARIE Transcribe Date/Time: Apr 15 2024 9:54A Dictated by : JONATHAN ALEXANDER MD This examination was interpreted and the report reviewed and electronically signed by: JONATHAN ALEXANDER MD on Apr 15 2024 10:20AM EST [id number] PROGRESS Observed: 04/15/2024 9:30 AM Status: COMPLETED Source: [facility] HNO ID: [id number] Author: CANDIE BOO RDMS Service: ? Author Type: Plumbing Installer Type: Progress Notes Filed: 04/15/2024 11:22 Note Text: Radiology Service Progress Note PATIENT NAME: Geri De Santiago DATE OF SERVICE: April 15, 2024 TIME: 11:22 AM PATIENT IDENTITY VERIFICATION COMPLETED USING TWO (2) IDENTIFIERS: Name and Date of confirmed by patient verbally. FALL SCREENING: Has the patient had 2 falls in the last year or 1 fall with injury or currently using an Ambulatory Assistive Device (Walker, Cane, Wheelchair, Crutches, etc.)? No PATIENT GENDER DATA: Female. status: : No status: NO. PATIENT RELEVANT IMPLANT DATA REVIEWED: Not Applicable PATIENT PRESENTS WITH AN IMPLANTABLE OR ATTACHED POSTAL SUPERVISOR: No RADIOLOGY DEPARTMENT: Ultrasound PERIPHERAL IV DATA: Not applicable SIGNED BY: Candie Boo RDMS RVT April 15, 2024 11:22 AM MANAN DAILY Observed: 04/15/2024 9:22 AM Status: F Source: [facility] * * *Final Report* * * DATE OF EXAM: Apr 15 2024 9:22AM W 0629 - MANAN ESMER DAILY / PROCEDURE REASON: Category 3 mammography result with short follow-up interval suggested for probab * * * * Physician Interpretation * * * * RESULT: [facility] [address] [id number] HISTORY: Patient is 63 years old and is seen for additional evaluation requested from prior study short term follow-up from a previous mammogram in the right breast. The patient has no personal history of cancer. COMPARISON STUDIES: The present examination has been compared to prior imaging studies dated 01/18/2021 (mammogram), 01/30/2022 (mammogram), 03/27/2023 (mammogram), 04/25/2023 (mammogram), 10/10/2023 (mammogram) and 10/10/2023 (ultrasound). MAMMOGRAM TECHNIQUE: The study was acquired using full field digital technology and interpreted from soft copy. Digital Breast Tomosynthesis (DBT) images were obtained and used to assist in the interpretation of this examination. Computer-aided detection was utilized by the radiologist in the interpretation of this examination. MAMMOGRAM FINDINGS: There are scattered areas of fibroglandular density. There is a stable asymmetry measuring 1 centimeter with indistinct margins seen in the MLO view only in the posterior depth upper outer quadrant of the right breast. This finding resembles fibroglandular tissue. IMPRESSION: Stable asymmetry in the right breast is probably benign. Follow-up in 6 months is recommended. BI-RADS Category 3: Probably Benign RISK: Based on the Tyrer-Cuzick (TC) risk assessment model, this patient has a 5.8% lifetime risk of developing breast cancer, meaning they are at average risk for developing breast cancer. However, this is only an estimate based on available history provided on the patient's questionnaire. We encourage all patients talk with their providers about these results, further recommendations for managing breast health, and appropriate supplemental screening options if the patient has dense breast tissue. Interpreting Radiologist: Jonathan Alexander M.D. Electronically signed on: 04/15/2024 Front Office Secretary: KARIE Transcribe Date/Time: Apr 15 2024 8:59A Dictated by: JONATHAN ALEXANDER MD This examination was interpreted and the report reviewed and electronically signed by: JONATHAN ALEXANDER MD on Apr 15 2024 10:17AM EST [id number] PROGRESS Observed: 04/15/2024 9:00 AM Status: COMPLETED Source: [facility] ID: [id number] Author: АНДРЕЙ LAWSON Mammo Tech Service: ? Author Type: Help Desk Intern Type: Progress Notes Filed: 04/15/2024 09:18 Note Text: Radiology Service Progress Note PATIENT NAME: Geri De Santiago DATE OF SERVICE: April 15, 2024 TIME: 8:58 AM PATIENT IDENTITY VERIFICATION COMPLETED USING TWO (2) IDENTIFIERS: Name and Date of confirmed by patient verbally. FALL SCREENING: Has the patient had 2 falls in the last year or 1 fall with injury or currently using an Ambulatory Assistive Device (Walker, Cane, Wheelchair, Crutches, etc.)? No PATIENT GENDER DATA: Female. status: : No status: NO. PATIENT RELEVANT IMPLANT DATA REVIEWED: Not Applicable PATIENT PRESENTS WITH AN IMPLANTABLE OR ATTACHED POSTAL SUPERVISOR: No RADIOLOGY DEPARTMENT: Mammography PERIPHERAL IV DATA: Not applicable SIGNED BY: Felton Rocha April 15, 2024 8:58 AM CNPN Observed: 04/15/2024 12:00 AM Status: COMPLETED Source: [facility] Telephone (OBGYWM) JONELGERI ([id number]) 1960 F Date Time Provider Department 04/15/24 SARITHA RODRIGUEZ OBISHA During your visit today, we recorded the following information about you: Thelma Cook RN 04/15/2024 1:21 PM Signed ----- Message from Saritha Box MD sent at 04/15/2024 1:12 PM EDT ----- Needs follow up mammogram and ultrasound of right breast in 6 months. Thelma Cook RN 04/15/2024 1:24 PM Signed Patient will be due for screening mammogram in 6 months. Please file bilateral diagnostic imaging orders then we will notify patient she can schedule. FARAZ Heredia Deidre, MD 04/15/2024 5:32 PM Signed ordered Yudy Nichols RN 04/16/2024 9:49 AM Signed Left message to call office. Yudy Nichols RN Allergies As of Date: 04/15/2024 Noted Allergy Reaction SULFA (SULFONAMIDE ANTIBIOTICS) 04/11/2005 2 - Rash Date Reviewed: 02/19/2024 Reviewed by: Alina Bird MA - Fully Assessed Reason for Visit: Orders [681] Primary Visit Diagnosis:Category 3 mammography result with short follow-up interval suggested for probably benign finding [R92.8] Order(s):[facility] DIAGNOSTIC BILATERAL [[id number]] Order #: [id number] FUTURE BREAST LTD RIGHT [[id number]] Order #: [id number] FUTURE Prescriptions as of 04/18/2024 - Phentermine HCl 37.5 mg tablet Take 1 tablet by mouth daily before breakfast for 90 days. - lansoprazole (PREVACID) 30 mg capsule Take 1 capsule by mouth once daily. - lisinopril-hydroCHLOROthiazide (ZESTORETIC) 10-12.5 mg per tablet Take 1 tablet by mouth every morning. - predniSONE (DELTASONE) 10 mg tablet Take 6 tabs by mouth for 3 days then 4 tabs a day for 3 days then 2 tabs a day for 3 days and then 1 tab a day for 3 days. - metFORMIN ER (GLUCOPHAGE XR) 750 mg 24 hr tablet Take 2 tablets by mouth daily with dinner. - metroNIDAZOLE (METROGEL) 0.75 % Topical Gel Apply to affected area two times a day. - Multivitamin capsule Take 1 capsule by mouth once daily. Problem List As Of Date 04/15/2024 Noted Resolved Essential hypertension, benign [I10] 06/09/2009 Obesity, Class III, BMI 40-49.9 (morbid obesity*06/09/2009 07/15/2018 Hyperlipidemia, mixed [E78.2] 06/10/2009 Moderate asthma without complication [J45.909] 12/02/2011 Vaginitis [N76.0] 09/10/2012 08/11/2019 Rosacea [L71.9] 12/13/2012 Impaired fasting glucose [R73.01] 01/24/2013 07/15/2018 Lichen sclerosus [L90.0] 02/11/2013 07/25/2023 Lactose intolerance [E73.9] 07/07/2016 Obesity, Class II, BMI 35-39.9 [E66.812] 08/11/2019 GERD without esophagitis [K21.9] 06/22/2021 Well adult exam [Z00.00] 06/22/2021 History of COVID-19 [Z86.16] 07/19/2022 Medication management [Z79.899] 07/19/2022 Neck pain [M54.2] 01/28/2024 Acute pain of left shoulder [M25.512] 01/28/2024 Radicular pain in left arm [M79.2] 01/28/2024 Left hip pain [M25.552] 01/28/2024 Encounter Status:Closed by THELMA COOK on 04/18/24 PROGRESS Observed: 03/03/2024 5:17 PM Status: COMPLETED Source: [facility] HNO ID: [id number] Author: DAVID SANCHEZ PT Service: ? Author Type: Physical Therapist Type: Progress Notes Filed: 03/04/2024 06:43 Note Text: Episode Visit Count: 8 Therapist That Will Accept/Oversee The Plan Of Care: David Sanchez PT. Start of Care Date: 01/28/24 Onset Date: 08/20/23 Patient Identified by Name and Date of : Yes REHABILITATION AND SPORTS THERAPY PHYSICAL THERAPY PROGRESS REPORT PLAN OF CARE UPDATE: Assessment: Geri De Santiago reports minimal improvement in pain reduction during ambulation, and slight improvement in bending. Still difficulty with putting her shoes and socks on, bending, deep squatting, sleeping and getting the left lower extremity into the car. Patient reports significant improvement in the L Neck and Shoulder pain reduction, Cervical AROM, driving ability. L Neck has some pain with end-range, however low on Numeric Pain Rating Scale and rated as dull. L Shoulder only seems to hurt after a day full of lifting. She has progressed toward goals. Patient continues to present with impairments in ADL's, gait, overall function, range of motion, soft tissue healing, strength, symptom management, and tissue tenderness that interfere with (Donning Shoes and Socks, LLE into Car, Bending, Working and Sleeping. Deep squatting.) . Current prognosis is Good due to: current objective clinical presentation .She will benefit from continued skilled therapy services to meet the updated goals for this plan of care as noted below. Updated: 03/03/24. Goals for Episode of Care: created on 01/28/24 through 03/30/24 Swengel in home exercise program. (MET per patient) Patient will decrease pain rating by 2 points to meet minimal clinical important difference for numeric pain rating scale. (Progressing) Patient will demo INC strength of Left Supraspinatus AND Left Hip Flexor AND Glute on MMT for improved ADL/IADLs. (Progressing Towards) Restore pain free cervical ROM to WNL to allow for no limitation when driving. (Progressing) Restore pain free use of the L Shoulder at and above shoulder level. (Progressing) Restore pain free walking and stairs without limitations. (Progressing) Patient Goals: Alleviate Pain and Improve Function. Planned Interventions, Frequency, and Duration: 1 visit, One month Total Number of Visits Planned: 1 Patient to be seen for Therapeutic exercise (56284), Neuromuscular re-education (59089), Manual therapy (69655), Therapeutic activities (27445), Self-fci management (34265), Gait Training (06022), Body Mechanics Training PLAN FOR NEXT VISIT: Assess response to symptoms with time and home maintenance. SUBJECTIVE: Reports can't walk normal when she stands up, being on her feet, the limping gets better on the LLE with time and movement. Functional Limitations: (Donning Shoes and Socks, LLE into Car, Bending, Working and Sleeping. Deep squatting.) Pain: Pain Pain Level: 3 Pain Location: Hip - Left Description: Aching, Dull Frequency: With movement PROMIS Scales 02/26/2024 01/27/2024 Higher is Better Phys Func - Score 43 (mild dysfunction) 45 (within normal limits) Phys Func - Percentile 24 31 Self-Eff Symptom - Score 52 (Average) 51 (Average) Self-Eff Symptom - Percentile 58 54 T-scores: mean of general population = 50. 5 points is clinically meaningfully difference Percentiles provide an indication of how the patient's score ranks in relation to the general population. Higher percentile rankings indicate better function/quality of life. 50th percentile is the average of the general population and indicates half of respondents had a worse score. OBJECTIVE MEASURES WITH LEVEL OF FUNCTION: Hip Observations L Hip Palpation Tenderness: Psoas Cervical Spine ROM Cervical Flexion AROM: Normal Cervical Extension AROM: Normal Cervical Side-Bend Right AROM: Normal, End range pain Cervical Side-Bend Left AROM: Normal (Light L Neck P! when bending back to neutral) Cervical Rotation Right AROM: Normal Cervical Rotation Left AROM: Normal, End range pain (55deg; Light L Neck P! when bending back to neutral) UE AROM L UE AROM: WNL, Equal Bilaterally. LE AROM L LE AROM: WNL AROM, light pain with active L Hip flexion, ER and ABD. LE PROM L LE PROM : Limited in Hip ER > IR. Both Painful, more with ER. UE and Cervical Strength L UE Strength: Grossly 5/5 LE Strength R LE Strength: Grossly 5/5 L Hip Flexion (L2): 4+/5 L Hip ABduction: 4+/5 L Hip External Rotation: 5/5 Special Tests - Hip and Spine SLR Test: Right Negative, Left Negative Gait Weight Bearing Status: FWB Gait Observation: No device. Improved gait. Slight antalgic with LLE in terminal stance. TREATMENT: Therapeutic Exercise: 1: Re-assessment per above, discussion on patient's progress; discussed modifications to activity/adls/iadls and not to push past pain for the L Hip. Discussed exam findings and relevant anatomy. 2: *Progressed parameters on already added HEP LE exercises: SLR, supine bridge, LAQ. 3: *Eccentric Squat to Chair: x10, 5-sec lower. 4: *Supine March with BTB around feet: 1x10 ea. 5: *Lateral Monster Walks: 1x10 [address], BTB around ankles. 6: *Standing L Hip ABD: 1x10. Skilled Intervention: Patient was educated in proper exercise technique and purpose for exercises. Reviewed and educated patient on additions/changes for home exercise program as above (*). Skilled judgment was used in selection of appropriate interventions. Provided written instruction for home exercise program to facilitate proper performance and compliance. Correct performance of therapeutic exercises was facilitated with verbal and tactile cuing. Billing Therapeutic Exercise Treatment Minutes: 41 Skilled Treatment Time Minutes (timed and untimed codes): 41 Total Session Time (minutes): 41 Session Start Time : 1716 Session Stop Time : 1757 David Sanchez PT CNTHERAPY Observed: 03/03/2024 5:15 PM Status: COMPLETED Source: [facility] OT/PT/Speech Visit (PTWS) GERI DE SANTIAGO ([id number]) 1960 F Date Time Provider Department 03/03/24 5:15 PM DAVID SANCHEZ Date Time Provider Department Center 03/03/2024 5:15 PM [id number], COLIN PTJOSE Chiang Reason for Visit: PT Progress Note [1596] PT Discharge [752] Primary Visit Diagnosis:Neck pain [M54.2] Other Visit Diagnoses:Acute pain of left shoulder [M25.512] Radicular pain in left arm [M79.2] Left hip pain [M25.552] Allergies As of Date: 03/03/2024 Noted Allergy Reaction SULFA (SULFONAMIDE ANTIBIOTICS) 04/11/2005 2 - Rash Date Reviewed: 02/19/2024 Reviewed by: Alina Bird MA - Fully Assessed Prescriptions as of 05/02/2024 - Phentermine HCl 37.5 mg tablet Take 1 tablet by mouth daily before breakfast for 90 days. - lansoprazole (PREVACID) 30 mg capsule Take 1 capsule by mouth once daily.- lisinopril-hydroCHLOROthiazide (ZESTORETIC) 10-12.5 mg per tablet Take 1 tablet by mouth every morning. - predniSONE (DELTASONE) 10 mg tablet Take 6 tabs by mouth for 3 days then 4 tabs a day for 3 days then 2 tabs a day for 3 days and then 1 tab a day for 3 days. - metFORMIN ER (GLUCOPHAGE XR) 750 mg 24 hr tablet Take 2 tablets by mouth daily with dinner. - metroNIDAZOLE (METROGEL) 0.75 % Topical Gel Apply to affected area two times a day. - Multivitamin capsule Take 1 capsule by mouth once daily. ALLERGIES DATE TYPE / CODE NAME / CODE REACTION SEVERITY SOURCE 04/11/2005 Drug Class/322357509(SNO MED CT) SULFA (SULFONAMIDE ANTIBIOTICS) [facility] ENCOUNTERS ADMIT/DISCHARGE ACCOUNT NUMBER ADMITTING ENCOUNTER CLASS LOC ATION SOURCE 02/27/2025/ 5 [id number] [facility] 02/23/2025/ [id number] [facility] 02/18/2025 [id number] [facility] ing:WOM[facility] 02/16/2025/ 5 [id number] [facility] 12/29/2024 [id number] [facility] HospitalBuild ing:WORG [facility] 12/29/2024/ 5 [id number] [facility] HospitalBuild ing:WOUC [facility] 10/27/2024/ 5 [id number] [facility] HospitalBuild ing:WOFM [facility] 10/14/2024/ 5 [id number] [facility] HospitalBuild ing:YOBANI [facility] 10/14/2024/ 5 [id number] [facility] HospitalBuild ing:WOUS [facility] 10/14/2024/ 5 [id number] [facility] HospitalBuild ing:WODM [facility] 09/16/2024/ 5 [id number] Ambulatory [facility] HospitalBuild ing:JOSER [facility] 09/11/2024/ 5 [id number] [facility] HospitalBuild ing:WOPT [facility] 08/18/2024/ 5 [id number] [facility] 07/31/2024/ 5 [id number] Ambulatory [facility] HospitalBuild ing:BROR [facility] 07/30/2024/ 5 [id number] Ambulatory [facility] HospitalBuild ing:WOFM [facility] 07/23/2024/ 5 [id number] Ambulatory [facility] HospitalBuild ing:WMOB [facility] 06/20/2024/ 4 [id number] Ambulatory [facility] HospitalBuild ing:RUTB [facility] 05/19/2024/ 4 [id number] Ambulatory [facility] HospitalBuild ing:WMOB [facility] 05/07/2024/ 4 [id number] Ambulatory [facility] HospitalBuild ing:BROR [facility] 04/15/2024/ 4 [id number] Ambulatory [facility] HospitalBuild ing:WOUS [facility] 04/15/2024/ 4 [id number] [facility] HospitalBuild ing:WODM [facility] 03/03/2024/ 4 [id number] [facility] HospitalBuild ing:WOPT [facility] PAYERS ENCOUNTER GUARANTOR PAYER SUBSCRIBER SOURCE 02/27/2025 Primary Insuranc e:AETNA POSPolicy Number: [id number] Date:2455-42-89Atms Name:Graciela Rodriguez GERMÁN: [id number] [place], [place] [id number] [place] [address] 02/27/2025 Secondary Insurance:[employer] PPOPolicy Number: [id number] Date:3187-59-90Cbzw Name:Aftab GERI DUNLAP: [id number] [place], [place] [address] [place] [address] 02/23/2025 Primary Insuranc e:AETNA POSPolicy Number: [id number] Date:1292-45-72Qcem Name:Graciela DE SANTIAGODOB: [id number] [place] [address] [facility] 02/23/2025 Secondary Insurance:[facility] PPOPolicy Number: [id number] Date:4706-53-28Dgpx Name:Aftab DE SANTIAGOB: [id number] [place], [place] [address] [place] [address] 02/18/2025 Primary Insuranc e:AETNA POSPolicy Number: [id number] Date:4702-19-75Twxx Name:Graciela DE SANTIAGOB: [id number] [place], [place] [address] [place] [address] 02/16/2025 Primary Insuranc e:AETNA POSPolicy Number: [id number] Date:5456-43-19Duzs Name:Graciela DE SANTIAGODOB: [id number] [place], [place] [address] [place] [address] 02/16/2025 Secondary Insurance:[facility] Number: [id number] Date:5249-88-94Oydv Name:Aftab DE SANTIAGODOB: [id number] [place] [address] [facility] 12/29/2024 Primary Insuranc e:AETNA POSPolicy Number: [id number] Date:6465-73-61Jrcj Name:Graciela DE SANTIAGODOB: [id number] [place], [place] [id number] [place] [address] 12/29/2024 Primary Insuranc e:AETNA POSPolicy Number: [id number] Date:3676-21-07Jbfn Name:Graciela DE SANTIAGODOB: [id number] [place], [place] [address] [place] [address] 10/27/2024 Primary Insuranc e:AETNA POSPolicy Number: [id number] Date:3094-02-87Eylp Name:Graciela DE SANTIAGOB: [id number] [place] [address] [facility] 10/14/2024 Primary Insuranc e:AETNA POSPolicy Number: [id number] Date:9583-53-38Uzjb Name:Graciela DE SANTIAGODOB: [id number] [place] [address] [facility] 10/14/2024 Primary Insuranc e:[employer]ET[employer] POSPolicy Number: [id number] Date:4295-22-97Rtbx Name:Graciela DE SANTIAGOB: [id number] [place] [address] [facility] 10/14/2024 Primary Insuranc e:[employer]ET[employer] POSPolicy Number: [id number] Date:2744-93-23Ixid Name:Graciela KEATINGBALB: [id number] [place] [address] [facility] 09/16/2024 Primary Insuranc e:AETNA POSPolicy Number: [id number] Date:0932-05-62Gsbb Name:Graciela DE SANTIAGOB: [id number] [place] [address] [facility] 09/11/2024 Primary Insuranc e:[employer]/ CANDIE Hilton Number: [id number] Date:2900-67-08Lcmt Name:Yaa KEATINGBALB: [id number] [place] [address] [facility] 09/11/2024 Secondary Insurance:AETNA POSPolicy Number: [id number] Date:6807-82-53Ydtn Name:Graciela DE SANTIAGOB: [id number] [place] [address] [facility] 08/18/2024 Primary Insuranc e:AETNA POSPolicy Number: [id number] Date:4593-37-21Mjyn Name:Graciela KEATINGBLAB: [id number] [place] [address] [facility] 07/31/2024 Primary Insuranc e:AETNA POSPolicy Number: [id number] Date:5522-60-26Dvvs Name:Graciela KEATINGBALB: [id number] [place] [address] [facility] 07/30/2024 Primary Insuranc e:[employer]ET[employer] POSPolicy Number: [id number] Date:4319-44-38Ifgi Name:Graciela KEATINGBALB: [id number] [place] [address] [facility] 07/23/2024 Primary Insuranc e:AETNA POSPolicy Number: [id number] Date:6837-98-02Wrah Name:Graciela Rodriguez ANDREAB: [id number] [place] [address] [facility] 06/20/2024 Primary Insuranc e:[employer]/ CANDIE JEWPETEPolicy Number: [id number] Date:6203-11-81Vtxf Name:Yaa Rodriguez ANDREAB: [id number] [place] [address] [facility] 06/20/2024 Secondary Insurance:AETNA POSPolicy Number: [id number] Date:1838-52-66Gvqf Name:Graciela KEATINGBALB: [id number] [place], [place] [address] [place] [address] 05/19/2024 Primary Insuranc e:AETNA POSPolicy Number: [id number] Date:7576-32-86Glnx Name:Graciela Rodriguez ANDREAB: [id number] [place] [address] [facility] 05/07/2024 Primary Insuranc e:AETNA POSPolicy Number: [id number] Date:4044-82-16Yxeq Name:Graciela Rodriguez ANDREAB: [id number] [place] [id number] [place] [address] 04/15/2024 Primary Insuranc e:AETNA POSPolicy Number: [id number] Date:0689-29-23Hhob Name:Graciela Rodriguez ANDREAB: [id number] [place] [id number] [place] [address] 04/15/2024 Primary Insuranc e:AETNA POSPolicy Number: [id number] Date:2209-09-06Plas Name:Graciela Rodriguez GERMÁN: [id number] [place] [id number] [place] [address]
[2025-04-03 16:50] VITALS: BP 186/90; PULSE 81; RESP 16; TEMP 37; O2SAT 98; BMI 38.0
[2025-04-03 17:39] LABS: AST(SGOT) 24 U/L (<=31); Alanine Aminotransfer ALT/SGPT 32 U/L (<=34); Albumin, Serum 4.0 g/dL (3.4-4.8); Alkaline Phosphatase 65 U/L (35-104); Anion Gap 11 (5-15); BUN 28 mg/dL (4-19); BUN/Creat Ratio 25.4 RATIO (10-20); Calcium,Total 9.2 mg/dL (7.6-11.0); Carbon Dioxide 24.1 mmol/L (21.0-32.0); Chloride 107 mmol/L (98-108); Estimated Creatinine Clearance 61.36 ml/min (50-250); Globulin 2.1 g/dL (2.2-4.2); Glucose 93 mg/dL (70-99); Potassium 3.7 mmol/L (3.3-5.1)
[2025-04-03 18:19] LABS: Hematocrit 40.0 % (37-47); Hemoglobin 13.4 g/dL (12.0-15.0); Immature Granulocytes Count 0.020 X10^3/uL (0.0-0.0); Mean Corp Hgb Conc 33.5 g/dL (32-36); Mean Corpuscular Volume 92.4 fL (81-99); Mean Platelet Vol. 10.7 fl (6.2-12.0); NRBC Flagged by Analyzer 0 % (0-5); Platelet Count 270 K/mm3 (150-450); RBC Distribution Width CV 12.2 % (11.6-14.6); RBC Distribution Width SD 41.6 fl (35.1-43.9); Red Blood Count 4.33 M/mm3 (4.2-5.4); White Blood Count 9.5 K/mm3 (4.4-11.0)
[2025-04-03 20:50] VITALS: BP 155/86; PULSE 87; RESP 16; O2SAT 99
--- NOTE | 2025-04-03 20:51 | CT_ITS ---
PROCEDURE: CT ABDOMEN/PELVIS WITHOUT CONTRAST 04/03/2025 REASON FOR EXAM: RIGHT FLANK PAIN, KIDNEY STONE TECHNIQUE: Procedure Code: CTABDPEL Modality: CT Procedure: ABDOMEN/PELVIS WITHOUT CONT Noncontrast technique limits evaluation of the abdominal and pelvic viscera. Coronal and Sagittal reconstruction series were provided. One or more dose reduction techniques were used (e.g., Automated exposure control, adjustment of the mA and/or kV according to patient size, use of iterative reconstruction technique). RADIATION DOSE SUMMARY: CTDlvol: 21.34 mGy DLP: 1167.69 mGycm COMPARISON: None. FINDINGS: Lung bases: Clear. Liver: Unremarkable. Gallbladder: Surgically absent. Spleen: Unremarkable. Pancreas: Unremarkable. Adrenals: Unremarkable. Kidneys/Bladder: Several bilateral punctate nonobstructive renal stones. No ureteral calculi, hydroureteronephrosis, or perinephric edema on either side. No findings to suggest a recently passed stone. Unremarkable urinary bladder. No stone within the bladder is seen. Reproductive Organs: Prior hysterectomy. Unremarkable adnexae. Bowel: No obstruction or active inflammatory process. Normal appendix. Lymph nodes: No enlarged abdominopelvic lymph nodes. Vasculature: Normal caliber abdominal aorta. Scant atherosclerotic calcifications. Peritoneum / Retroperitoneum: No ascites or free air. Bones: Multilevel degenerative changes of the spine, with grade 1 degenerative anterolisthesis of L4 on L5. 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 CT/Abdomen/Pelvis without Cont IMPRESSION: No acute or active inflammatory intra-abdominal pathology. Several bilateral punctate nonobstructive renal stones. No ureteral calculi or hydroureteronephrosis. A recently passed stone is not excluded, but there are no findings to suggest this. Reading Location: [id number]
--- NOTE | 2025-04-03 20:52 | EDS_ITS ---
HPI HPI - Female History of Present Illness Chief Complaint: Flank Pain Narrative Narrative: Patient is a 64-year-old female presenting to the emergency department for right flank pain since Sunday evening. Patient has a past medical history of kidney stones that she passed after being discharged from the emergency department. She is never required any intervention for them. She states this feels like her prior kidney stones. States that she thought she was passing it on Sunday but then continued to have pain throughout the week. Reports pain again that started around 5 hours ago. She denies any fever, chills, nausea, vomiting, dysuria or hematuria. Denies any change to her bowel movements. Denies chest pain or SOB. She has been taking NSAIDs at home for pain control. PFSH PFSH Home Medications ?Medication ?Instructions ?Recorded ?Last Taken ?Type lansoprazole 30 mg capsule,delayed 30 mg PO DAILY 12/0712/17/13 09:00 History release (Prevacid) doxycycline monohydrate 100 mg 100 mg PO BID 7 days #1 4 CAPSULES 01/13/25 Unknown Rx capsule lisinopril 1 tab PO DAILY 01/13/25 Unkn own History cyclobenzaprine 5 mg tablet 5 mg PO TID PRN muscle spa sm #10 04/04/25 Unknown Rx tabs oxycodone-acetaminophen 5 mg-325 1 tab PO Q8H PRN pain 3 days #10 04/04/25 Unknown Rx mg tablet (Percocet) tabs Allergy/AdvReac Type Severity Reaction Status Date / Time Sulfa (Sulfonamide Allergy Rash Verified 04/03/25 16:52 Antibiotics) Surgical History Hx of Achilles tendon repair Hx of section Hx of hysterectomy Social History Smoking Status: Never smoker ROS ROS ED ROS Narrative see HPI EXAM Physical Exam Narrative Exam Narrative: Vital signs: Reviewed General: Alert and orientedx3. No acute distress HEENT: Head is normocephalic and atraumatic, sinuses nontender, pupils equal round and reactive. Nares are patent. Oropharynx and throat exams normal. Neck: Supple without lymphadenopathy nontender Cardiovascular: Regular rate and rhythm, no murmurs. No rubs or gallops. Normal S1 and S2. 2+ and symmetric pulses in radial and DP/PT pulses. Respiratory: Clear to auscultation bilaterally. No wheezes, rales, rhonchi Abdominal: Soft and nontender. Normal bowel sounds. No guarding or rebound. Nonsurgical abdomen. Right CVA tenderness to palpation. No left CVA tenderness to palpation. Extremities: No tenderness. No bruising. Normal range of motion. Normal sensation. Skin: No rash or redness. Neurological: Cranial nerves II through XII are grossly intact. Normal strength and sensation. Normal cerebellar function The rest of the physical exam is unremarkable Const Vital Signs: 04/03/25 16:50 04/03/25 20:50 04/03/25 22:00 Temperature 98.6 F Temperature Source Oral Pulse Rate 81 87 77 Respiratory Rate 16 16 18 Blood Pressure 186/90 H 155/86 H 148/97 H Blood Pressure Mean 122 109 114 Pulse Ox 98 99 99 Oxygen Delivery Method Room Air MDM MDM MDM Narrative Medical decision making narrative: Patient is a 64-year-old female presenting to the emergency department for right sided flank pain and concern for kidney stone. Patient was seen and examined. Vitals are stable. Patient appears uncomfortable, resting in bed. No acute distress. Differential includes but is not limited to: Nephrolithiasis, pyelonephritis, UTI, muscle strain, less likely aortic pathology. She has had the pain for about a week, no chest pain, no shortness of breath, equal and symmetric pulses throughout. No neurologic deficits. Patient given fluids and Toradol for symptomatic control. Patient started on fluids and given Toradol for analgesia. CBC with no leukocytosis and a normal hemoglobin. CMP with elevated BUN at 28 otherwise no significant abnormalities. Urinalysis with rare bacteria and 25 leukocyte esterase. Not consistent with urinary tract infection however will send for culture. CT shows no acute or active inflammatory intraabdominal pathology. Several bilateral punctate nonobstructive renal stones. No hydro or ureteral calculi. Patient reevaluated and updated on the negative workup. Patient may be having pain secondary to a recently passed stone versus muscle strain. States has been taking Motrin at home with no relief of her symptoms and she feels like she cannot go home due to pain control if she is not given any other medications. I offered trying a Percocet here as well as a muscle relaxer thinking it is more musculoskeletal related. She is agreeable to trying this. This was given she has improvement in her pain. She was given a prescription for short course of Percocet for home as well as Flexeril. Patient discharged from the Emergency Department. I do not feel that the patient's evaluation reveals any acute reason for admission at this time. I instructed them to either follow-up with their primary care physician or promptly return to the Emergency Department for reevaluation should symptoms worsen or new symptoms develop. I explained what symptoms would indicate the need to return to the emergency department. Shared decision making was used. The patient voiced understanding of the treatment plan and is agreeable with it. Clinical impression Right flank pain History & Record Review Discussion w/independent historian: Patient Lab Data Attestation: I reviewed the patient's lab results. Labs: Laboratory Results - last 24 hr 04/03/25 04/03/25 17:02 21:04 WBC 9.5 RBC 4.33 Hgb 13.4 Hct 40.0 MCV 92.4 MCH 30.9 MCHC 33.5 RDW Std Deviation 41.6 RDW Coeff of Rema 12.2 Plt Count 270 MPV 10.7 Immature Gran % (Auto) 0.200 Neut % (Auto) 60.1 Lymph % (Auto) 25.2 Barron % (Auto) 10.3 H Eos % (Auto) 3.6 Baso % (Auto) 0.6 Absolute Neuts (auto) 5.7 Absolute Lymphs (auto) 2.40 Nucleated RBC % 0 Sodium 143 Potassium 3.7 Chloride 107 Carbon Dioxide 24.1 Anion Gap 11 BUN 28 H Creatinine 1.12 Estim Creat Clear Calc 61.36 Est GFR (MDRD) Non-Af 55 L BUN/Creatinine Ratio 25.4 H Glucose 93 Calcium 9.2 Total Bilirubin 0.24 AST 24 ALT 32 Alkaline Phosphatase 65 Total Protein 6.0 Albumin 4.0 Globulin 2.1 L Albumin/Globulin Ratio 1.9 Urine Color Yellow Urine Clarity Clear Urine pH 6.0 Ur Specific [place] 1.020 Urine Protein 15 H Urine Glucose (UA) Normal Urine Ketones Negative Urine Occult Blood Negative Urine Nitrite Negative Urine Bilirubin Negative Urine Urobilinogen Normal Ur Leukocyte Esterase 25 H Urine RBC 0-5 SEEN Urine WBC 0-5 SEEN Ur Squamous Epith Cells 0-5 SEEN Urine Bacteria RARE Urine Mucus 0 SEEN Radiography Diagnostic Testing: Clinical Impression(s) from Imaging Studies Abdomen/Pelvis CT 04/03/25 20:51 IMPRESSION: No acute or active inflammatory intra-abdominal pathology. Several bilateral punctate nonobstructive renal stones. No ureteral calculi or hydroureteronephrosis. A recently passed stone is not excluded, but there are no findings to suggest this. Reading Location: [facility] Discharge Plan Triage Chief Complaint: Flank Pain ED Provider: Paula Nogueira Dx/Rx/DC Orders Clinical Impression: Acute flank pain Instructions: ED Flank Pain with Uncertain Cause, ED Kidney Stone, Passed Prescriptions: New oxycodone-acetaminophen [Percocet] 5-325 mg tablet 1 tab PO Q8H PRN (Reason: pain) 3 Days Qty: 10 0RF cyclobenzaprine 5 mg tablet 5 mg PO TID PRN (Reason: muscle spasm) Qty: 10 0RF No Action lansoprazole [Prevacid] 30 MG capsule 30 mg PO DAILY Patient Comments: ACID REFLUX lisinopril 1 tab PO DAILY doxycycline monohydrate 100 mg capsule 100 mg PO BID 7 Days Qty: 14 0RF Primary Care Provider: Chi Millan Referrals: Chi Millan MD [Primary Care Provider, Family Practice] - 2 Days Activity Restrictions/Additional Instructions: Your evaluation in the Emergency Department did not reveal any acute reason for admission. However, I want to emphasize that you may be early in the course of a disease process or illness even if it is not present. For this reason you should follow-up within 24 hours for reevaluation with either your primary care physician or if necessary back here in the Emergency Department. You should return to the Emergency Department immediately if your symptoms worsen or new symptoms develop. Print Language: Irish Disposition Disposition: Home, Self Care
[2025-04-03] MEDS: 0.9% Normal Saline (1000mL) 1,000 ML 1000 ML IV (21:14)
[2025-04-03 21:22] LABS: Mucous, Urine 0 SEEN /hpf (<or=2+)
[2025-04-03 21:43] LABS: Color, Urine Yellow (Yellow); Glucose, Dipstick Normal (Normal); Ketone-Dipstick Negative (Negative); Leukocyte Esterase-Dipstick 25 /ul (Negative); Nitrite-Dipstick Negative (Negative); Occult Blood-Urine Negative /ul (Negative); Protein-Dipstick 15 mg/dl (Negative); Specific Gravity, Urine 1.020 (1.002-1.030); Urine Bilirubin Dipstick Negative (Negative)
[2025-04-03 22:00] VITALS: BP 148/97; PULSE 77; RESP 18; O2SAT 99
[2025-04-03 22:37] LABS: Red Blood Cells-Urine 0-5 SEEN /hpf (0-5); Squamous Epithelial Cells - UA 0-5 SEEN /hpf (5-10)
[2025-04-03] MEDS: HYDROcodone Bitartrate/Apap 5/325 Tablet PO (22:52)
== END 2025-04-04 01:11 | disposition home or self-care (01) ==
PROVIDERS: Emergency Provider Student in an Organized Health Care Education/Training Program; PCP Family Medicine; Visit Provider Student in an Organized Health Care Education/Training Program
DX: R10.9 Unspecified abdominal pain (principal)
CPT/HCPCS: 74176; 80053; 81001; 85025; 87086; 87088; 96361; 96374; 96376; 99284